=== PATIENT | female | born 1995 | race Caucasian/White ===

== ENCOUNTER 2022-04-30 13:49 | Outpatient (CLI) | payer OTHER, SELFPAY ==
--- NOTE | 2022-04-30 14:00 | CRLHL7_ITS ---
For Patients: As a result of the Century Cures Act, medical imaging exams and procedure reports are released immediately into your electronic medical record. You may view this report before your referring provider. If you have questions, please contact your health care provider. INDICATION: Evaluate anatomy. COMPARISON: 02/08/2022 TECHNIQUE: Real time rae scale imaging of the fetus was performed as well as color Doppler analysis of the umbilical vessels. FINDINGS: Sonographic imaging demonstrates a single living intrauterine gestation. Fetus demonstrates a regular cardiac rate of 152 beats per minute. Fetus has a vertex position. The placenta lies posteriorly without evidence of placenta previa. The edge of the placenta is located 4.0 cm from the internal cervical os. Amniotic fluid volume appears normal. Single deepest vertical pocket: 3.7 cm. The cervix is closed and measures 3.6 cm in length. The composite ultrasound gestational age is calculated at 20 weeks 4 days with an estimated sonographic due date of 09/13/2022. The estimated weight is 359 grams which lies at the 27th %. The following biometric measurements were obtained: Biparietal diameter: 4.8 cm/20 weeks 3 days 32nd% Head circumference: 18.3 cm/20 weeks 5 days 33rd% Abdominal circumference: 15.8 cm/21 weeks 0 days 47th% Femur length: 3.2 cm/19 weeks 6 days 14th% The HC/AC ratio measures: 1.16 range (1.07-1.25) On anatomic survey, there is a normal appearance of the cerebral ventricles, cavum septi pellucidi, cisterna magna and cerebellum. The nose, lips, and facial profile appear normal. The cervical, thoracic and lumbar spine are well visualized and appear normal. The left and right ventricular outflow tracts appear normal. 3 millimeter left ventricular echogenic focus is present. The diaphragm and stomach appear normal. The kidneys and bladder also appear normal. There is a normal three-vessel cord and cord insertion site. The four extremities appear normal. IMPRESSION: Concordance of clinical and sonographic dating. Echogenic left ventricular focus. Remainder of the anatomic survey is normal. Level 2 ultrasound suggested. Estimated weight 27th percentile. Abdominal circumference 47th percentile. Dictated by Raman Laurent MD @ 04/30/2022 3:28:20 PM (Electronically Signed)
== END 2022-04-30 13:50 | disposition home or self-care (01) ==
LOC: US 13:51
PROVIDERS: PCP Physician Assistant Medical; Visit Provider Physician Assistant
DX: Z34.92 Encounter for supervision of normal pregnancy, unspecified, second trimester (principal); Z3A.20 20 weeks gestation of pregnancy
CPT/HCPCS: 76805

== ENCOUNTER 2022-05-15 14:17 | Outpatient (CLI) | payer OTHER, SELFPAY | END 2022-05-15 14:18 | disposition home or self-care (01) | LOC: US 14:18 | PROVIDERS: PCP Physician Assistant Medical; Visit Provider Pediatrics Neonatal-Perinatal Medicine | DX: Z34.92 Encounter for supervision of normal pregnancy, unspecified, second trimester (principal); Z3A.23 23 weeks gestation of pregnancy | CPT/HCPCS: 76816 ==

== ENCOUNTER 2022-06-20 14:00 | Outpatient (CLI) | payer OTHER, SELFPAY ==
[2022-06-22 18:50] LABS: Rapid Plasma Reagin (RPR) Non Reactive (Non Reactive)
== END 2022-06-20 14:01 | disposition home or self-care (01) ==
LOC: NFLDREF 14:36
PROVIDERS: PCP Physician Assistant Medical; Visit Provider Advanced Practice Midwife
DX: Z34.93 Encounter for supervision of normal pregnancy, unspecified, third trimester (principal); Z3A.28 28 weeks gestation of pregnancy
CPT/HCPCS: 86592; 86787

== ENCOUNTER 2022-08-01 16:02 | Outpatient (CLI) | payer OTHER, SELFPAY ==
--- NOTE | 2022-08-01 16:00 | CRLHL7_ITS ---
For Patients: As a result of the Century Cures Act, medical imaging exams and procedure reports are released immediately into your electronic medical record. You may view this report before your referring provider. If you have questions, please contact your health care provider. OB ULTRASOUND 08/01/2022 CLINICAL HISTORY: Measuring small for dates. RAMBO by LMP: 09/11/2022. GA: 34w, 1d. FINDINGS: position: Vertex. Cervix: Not visualized. Placenta: Fundal posterior. Technique: Transabdominal. heart rate: 154 bpm. Amniotic Fluid: 3.9 cm SDP (greater than/equal to: 2- less than 8 cm). BPD: 8.3 cm. 33w 2d, 23 percent. HC: 31.5 cm. 35w 2d, 42 percent. AC: 29.9 cm. 33w 6d, 46 percent. FL: 6.1 cm. 31w 4d, less than 3 percent. FL/AC ratio: 20.4 percent. HC/AC ratio: 1.05. age by this US: 33w 4d. RAMBO by this US: 09/15/2022. EFW: 2168 g. Weight: 4 lbs, 12 oz. Percentile by RAMBO: 22 percent. IMPRESSION: Single live intrauterine gestation. Gestational age 33 weeks 4 days. RAMBO of 09/15/2022. Estimated weight 2168 g which lies at the 22nd percentile. BRITNEY IZQUIERDO M.D. Transcribed: 8:55 p.m. [email or web address] be/Dictated by: Britney Izquierdo MD @ 08/01/2022 7:22:00 PM (Electronically Signed)
== END 2022-08-01 16:03 | disposition home or self-care (01) ==
LOC: US 16:03
PROVIDERS: PCP Physician Assistant Medical; Visit Provider Advanced Practice Midwife
DX: O36.5930 Maternal care for other known or suspected poor fetal growth, third trimester, not applicable or unspecified (principal); Z3A.33 33 weeks gestation of pregnancy
CPT/HCPCS: 76816

== ENCOUNTER 2022-08-15 15:20 | Outpatient (CLI) | payer OTHER, SELFPAY ==
[2022-08-16 11:43] LABS: Strep B DNA Probe NEGATIVE (Negative)
== END 2022-08-15 15:21 | disposition home or self-care (01) ==
PROVIDERS: PCP Physician Assistant Medical; Visit Provider Advanced Practice Midwife
DX: Z34.03 Encounter for supervision of normal first pregnancy, third trimester (principal)
CPT/HCPCS: 87081; 87653

== ENCOUNTER 2022-08-27 13:57 | Outpatient (CLI) | payer OTHER, SELFPAY ==
--- NOTE | 2022-08-27 14:00 | CRLHL7_ITS ---
For Patients: As a result of the Century Cures Act, medical imaging exams and procedure reports are released immediately into your electronic medical record. You may view this report before your referring provider. If you have questions, please contact your health care provider. INDICATION: Size less than dates TECHNIQUE: Real time rae scale imaging of the fetus was performed. COMPARISON: 08/01/2022 FINDINGS: Sonographic imaging demonstrates a single living intrauterine gestation. Fetus demonstrates a regular cardiac rate of 149 beats per minute. Fetus has a vertex position. The placenta lies posteriorly. Amniotic fluid volume appears normal and there is a single deepest pocket of 4.9 cm. The estimated weight is 2990gm which lies at the 30th %. On the prior OB ultrasound dated 08/01/2022 the estimated weight was at the 22nd percentile. BPD 20th percentile. HC 30th percentile. AC 29th percentile. FL 22nd percentile. The fetus was active and demonstrated normal breathing movements. There was normal flexion and extension of the trunk and extremities. IMPRESSION: Normal biophysical profile score 8/8. Sonographic gestational age 36 weeks 5 days and sonographic due date of 09/19/2022. Sonographic age 8 days behind the clinical age. Estimated weight 30th percentile. Abdominal circumference 29th percentile. Dictated by Raman Laurent MD @ 08/27/2022 3:54:57 PM (Electronically Signed)
== END 2022-08-27 13:58 | disposition home or self-care (01) ==
LOC: US 13:57
PROVIDERS: PCP Physician Assistant Medical; Visit Provider Advanced Practice Midwife
DX: O36.5930 Maternal care for other known or suspected poor fetal growth, third trimester, not applicable or unspecified (principal); Z3A.37 37 weeks gestation of pregnancy
CPT/HCPCS: 76816; 76819

== ENCOUNTER 2022-08-30 15:17 | Inpatient (IN) | payer OTHER, SELFPAY ==
[2022-08-30] VITALS (9 sets, daily range): BP systolic 111–167; BP diastolic 71–80; PULSE 67–86; RESP 16–18; TEMP 36.5–36.9; O2SAT 100; BMI 26.6
[2022-08-30 16:14] LABS: Amnisure Rom* POSITIVE
--- NOTE | 2022-08-30 17:07 | P.LDBA_ITS ---
Subjective History of Present Illness Time Seen by Provider: 17:08 Date Seen: 08/30/22 Narrative: Patient is being admitted to Labor and Delivery for SROM, early labor. She is a 27 year old at 38.2 weeks gestation. Her full history and physical was dictated by Amelia Thompson on 08/23/22. Please see this for details. Tory states SROM, clear fluid noted at 10:00 am. Slow leak. She is starting to feel more frequent ctx, and feels these are increasing in intensity. Appears comfortable at this time. Partner at bedside for support. Blood type: O positive Partner: Florencio Milly Tdap, allergic. H&P done 08/23/2022 by CARY Webber 1. Cardiac Echogenic Foci on Anatomy US: 3 mm (Resolved) Level II with Dr. Tello, no identified on US; no further imaging or genetic testing required 2. Measuring smaller than dates US ordered: EFW 22% at 34 weeks Continues to measure behind at 37 weeks, recommended another growth 08/27/22: Growth u/s today for size < dates: 30%ile, FHR 149, SDP 4.0, Vertex. BPP 8/8. OB - H&P: Exam Physical Exam: Vital signs: Temp Pulse Resp Pulse Ox 98.3 F 86 16 100 08/30/22 15:25 08/30/22 15:25 08/30/22 15:25 08/30/22 15:25 Constitutional: Constitutional: no acute distress and cooperative Routine HEENT Exam: Head: Present normocephalic Routine Neck Exam: Neck: Present full ROM Routine Respiratory Exam: Respiratory: Present CTA bilaterally Routine Cardiovascular Exam: Cardiovascular: RRR Detailed Labor and Delivery Exam: Patient Gravid: yes Dilation (cm): 2 (2.5 per RN) Effacement (%): 60 Contraction frequency (min): 5 (2-5, mild, irregular) Contraction intensity: Mild Fetus (Single): Station: -3 Amniotic Membrane Status: SROM (small amount of clar fluid) Amniotic Membrane Fluid Description: Clear Heart Rate Baseline: 135 Monitor Accelerations: Present Monitor Decelerations: None Mcc Variability: Average (6-10) (Moderate) Routine Extremities Exam: Extremities: Present full ROM Routine Back/Spine/Pelvis Exam: Back/Spine: full ROM Routine Skin Exam: Present intact, dry and warm Routine Neurological Exam: Present alert and oriented X3 Routine Psychiatric Exam: Present normal affect and normal thought process OB - Problem Based A/P Additional Plan (1) SROM (spontaneous rupture of membranes): Status: Acute Plan at 38.2 weeks GBS neg Measuring small for dates, otherwise uncomplicated SROM, small amount, clear fluid X 8 hours Early labor Admit to L & D Intermittent monitoring per protocol at this time Does not need IV access at this time Reviewed options of using medication - cytotec or pitocin to encourage labor. Declines at this time, would prefer expectant management to see if labor occurs on it's own. Candidate for analgesia of choice. Planning unmedicated Desires waterbirth. Hep C neg and consent signed Continue to monitor for labor progress. Consider augmentation if not progressi ng Encourage movement and position changes to facilitate physiologic labor. Monitor for signs of infection Anticipate progress to NVD. Delivery/Labor/Induction Plan Plan: expectant management
[2022-08-30 18:06] LABS: SARS PCR* Negative SARS-CoV-2 (Negative)
[2022-08-30] MEDS: ONDANSETRON ODT 4 MG TAB PO (22:19)
[2022-08-31] VITALS (13 sets, daily range): BP systolic 105–135; BP diastolic 61–84; PULSE 61–86; RESP 14–16; TEMP 36.6–37.4; O2SAT 96
[2022-08-31] MEDS: LIDOCAINE 1% MDV 20 ML INJECTION (01:33)
--- NOTE | 2022-08-31 01:51 | P.OBPRC_ITS ---
Procedure Delivery date: 08/31/22 Procedure Done: Global Procedure Details: The patient is a 27 year-old G1 now P1 admitted on 08/30/22 at 38.2 Weeks for SROM, early labor.? Cervical exam on admission was 2.5 cm/60 % effaced/-3 station with membranes ruptured in vertex presentation.? Contractions were every 2-5 minutes.? SROM occurred at 1000 with clear fluid. ? Labor Analgesia:? Nitrous ? Pitocin:? No ? Labor onset:? 2203 ? Complete:? 0040 ? Pushing:? 0045 ? heart tones during second stage: Audible decels noted after ctx, good return to baseline noted. Tory noted increasing pressure, but was not spontaneously bearing down. SVE done, complete and +1 station. CNM encouraged her to push and used fingers to help her focus on wear to push. Good descent noted. Infant noted to be , and FHTs continued to have audible decels in the heart rate. Tight b and noted on the perineum. Massage done between pushing and with ctx, and further decent noted. Delivery occurred shortly after. ? At 0112 a viable male delivered in vertex OA presentation over intact perineum via spontaneous vaginal delivery.? Infant was placed on maternal abdomen.? Cord was clamped and cut after a 5+ minue delay.? weight pending.? 8 at 1 minute and 8 at 5 minutes.? Shoulder dystocia: no.? Nuchal cord: Yes, delivered through. ? Placenta delivered spontaneously and complete at 0125 with a 3 vessel cord. ? Mother and infant were stable after delivery. ? Lacerations:? Bilateral periurethrals, right repaired with 4-0 Vicryl. ? Blood loss: 100 mL. Blood loss measurement type: EBL r/t waterbirth ? Sponge and needles counts are correct. Intrapartal Events: None Delivery monitor: external FHT (Intermittant doppler) Route of delivery: Laceration description: Periurethral - 1st Degree (Bilateral, right repaired) Delivery repair: Vicryl Estimated blood loss (mL): 100 Anesthesia type: Nitrous (Nitrous for labor, Local for repair) Disposition: floor [place] Gender: Male presentation: vertex Placental Delivery Description: Spontaneous Cord Description: 3 Vessels and Nuchal Cord (Delivered through) OB Vag Delivery Procedures Additional Procedures ECV: No Cook Catheter Insertion: No NST: No D&C: No Laceration Repair: Yes Tubal Ligation : No Other: No
[2022-08-31] MEDS: ACETAMINOPHEN 500 MG TABLET 1000 MG PO ×3 (06:12→19:56)
[2022-08-31] MEDS: DOCUSATE SODIUM 100 MG CAPSULE PO (09:12)
[2022-08-31] MEDS: IBUPROFEN 600 MG TABLET PO ×2 (09:39→16:01)
[2022-09-01 01:34] VITALS: BP 107/69; PULSE 68; RESP 14; TEMP 37.1
[2022-09-01] MEDS: ACETAMINOPHEN 500 MG TABLET 1000 MG PO (03:20)
[2022-09-01] MEDS: IBUPROFEN 600 MG TABLET PO (07:54)
[2022-09-01] MEDS: DOCUSATE SODIUM 100 MG CAPSULE PO (07:54)
[2022-09-01 08:00] VITALS: BP 113/76; PULSE 68; RESP 14; TEMP 37.1
--- NOTE | 2022-09-01 08:26 | PM.OBDSVD1 ---
DS: Providers Provider Date Seen: 09/01/22 Date of admission: 08/30/22 15:17 Primary care physician: Ronny Steele PA-C Admitting Clinician: Zulma Quiroz CNM Attending Physician on discharge: Barby Thompson CNM Date of Discharge: 09/01/22 DS: Diagnosis Discharge Diagnosis (1) care and examination immediately after delivery: Status: Acute (2) Normal spontaneous vaginal delivery: Status: Acute (3) Lactating mother: Status: Acute Exam Const: Vital Signs, click to edit/add: Vital Signs - 24 hr 08/31/22 12:25 08/31/22 16:00 08/31/22 20:00 Temperature 98.9 F 98.8 F 98 F Pulse Rate [Pulse Oximeter] 68 68 68 Respiratory Rate 14 14 14 Blood Pressure [Le ft Arm] 110/74 134/84 119/77 Oxygen Delivery Me thod Room Air Room Air Room Air 09/01/22 01:34 BIT BENDER 09/01/22 08:00 Temperature 98.7 F 98.7 F Pulse Rate [Pulse Oximeter] 68 68 Respiratory Rate 14 14 Blood Pressure [Le ft Arm] 107/69 113/76 Oxygen Delivery Me thod Room Air Room Air Documenting provider has reviewed patient's vital signs: yes Common normals: no apparent distress, oriented x3, healthy appearing and alert HENMT: Common normals: normocephalic Head and scalp: normocephalic Eye: Common normals: PERRL Pupil: PERRL Neck & C-Spine: Common normals: full ROM and supple Chest: Common normals: inspection of chest normal Resp: Common normals: normal respiratory effort and clear to auscultation bilaterally Auscultation: clear to auscultation bilaterally Cardio: Common normals: regular rate and regular rhythm Rate: regular rate Rhythm: regular rhythm GI: Common normals: soft to palpation Palpation: soft : OB/external & speculum: Yes perineal/vaginal laceration Laceration: periurethral Uterus: U/U Lochia: scant Back & Pelvis: Common normals: thoracic and lumbar spine normal to inspection Extremity: Common normals: normal to inspection and full ROM Neuro: Common normals: oriented x3 Sensorium/orientation: alert Speech: speech normal Psych: Common normals: mental status grossly normal, thought process normal, speech normal and activity/motor behavior normal Speech: normal speech Thought process: normal thought process Skin: Common normals: no rashes or lesions noted General skin exam: no rashes or lesions noted OB - DS: Summary Hospital Course Hospital Course: The patient is a 27 year old G 1 P 1 at 38 3/7 weeks gestation that was admitted to the [facility] on 08/30/22 for SROM. She had an uncomplicated vaginal delivery. She delivered a viable male infant, Manish. She is breast feeding and reports it is going well. the patient has done well. The pain is well controlled with current medications.? She has no new complaints.? Urinary output is adequate and she is voiding without difficulty.? Has a good appetite, is tolerating a general diet, is passing flatus, and has not yet had a bowel movement.? Has scant amount of rubra lochia.? She is ambulating well. Peripartum Data delivery method: Vaginal Laceration description: Periurethral - 1st Degree complications: none Pooler Gender: Male Discharge Plan: Home Status at Discharge Functional status at discharge: independent ambulation Overall status at discharge: patient is progressing back to baseline Time Spent with Patient Time attestation: Total time spent providing and/or coordinating discharge services: Discharge Plan Discharge Disposition: Home, Self-Care Date of Admission: 08/30/22 15:17 Attending Provider on Discharge: Barby Thompson Primary Care Provider: Ronny Steele Condition: Stable Anticipated Discharge Date/Time: 09/01/22 10:00 Discharge Medications: New acetaminophen 500 mg Tablet 1,000 mg PO Q6H PRNQty: 0 0RF docusate sodium 100 mg Capsule 100 mg PO DAILY Qty: 90 0RF ibuprofen 600 mg Tablet 600 mg PO Q6H PRNQty: 60 0RF Continued cholecalciferol (vitamin D3) 50 mcg (2,000 unit) tablet 2,000 unit PO DAILY prenat.vits,jane,[id number] Tablet 1 tab PO QDAY vitamin B complex Capsule 1 cap PO QDAY (DME) breast pump Device See Rx Instructions .Route Qty: 1 0RF Rx Instructions: As directed Discharge Orders: Discharge Order (Routine); Ordered 09/01/22 Ordered By: Barby Thompson Patient Education: OB Vaginal/Breast Feeding Additional Instructions: Discharge instructions were reviewed with the patient including signs and symptoms of infection and home going medications Nothing vaginally for 6 weeks: no tampons or intercourse Off Work or School for 6 weeks 2-week visit: discuss infant feeding concerns, review control options and screen for anxiety/depression. 6-week visit for an annual exam. consultation services are available to all mothers and babies for the first year after delivery.? To make an appointment, please call [phone]. Activity Level: No Restrictions and Activity as Tolerated Discharge Diet: Regular Follow Up Appointments: [facility] [Provider Group] (2 weeks and 6 weeks ) Forms: [employer] Info Instructions
== END 2022-09-01 11:22 | disposition home or self-care (01) | DRG 807 ==
LOC: OB OUT 15:17 → OB 15:19
PROVIDERS: Admitting Provider Advanced Practice Midwife; PCP Physician Assistant Medical; Visit Provider Advanced Practice Midwife
DX: O36.5930 Maternal care for other known or suspected poor fetal growth, third trimester, not applicable or unspecified (principal); Z37.0 Single live birth; O70.0 First degree perineal laceration during delivery; Z3A.38 38 weeks gestation of pregnancy
CPT/HCPCS: 76815; 84112; 87635; 99213; A9270

== ENCOUNTER 2022-09-13 11:01 | Outpatient (CLI) | payer OTHER, SELFPAY ==
--- NOTE | 2022-09-13 17:55 | P.LACCB_ITS ---
Consult Note - Mom Date of Visit Date of visit: 09/13/22 business process consultant: Yuki Mckee Visit Code: Visit Patient's Information Phone number: [phone] : 1 Para: 1 Allergies Pertussis Vaccines Allergy (Severe, Verified 09/16/22 15:30) got pertussis from injection Mother's Medical History: Medical History (Updated 09/04/22 @ 00:01 by ) Delivery Information Delivery type: Vaginal Weeks Gestation: 38.3 Gestational Age: AGA Weight: 3.255 kg Discharge Weight: 3.15 kg Baby's Information Baby's Age at Visit: 13 days Baby's Provider or Clinic: Dr. Thompson Jaundice: Yes (facial) Reason for Consult Reason for Consult: difficulty latching on the left Past Experience Past Experience: No Current Frequency of Day Feedings: about every 2 hours, cluster fed yesterday Frequency of Night Feedings: every 2 - 3 hours Both Breasts: Yes Suck: strong Latch: wide Length of Time: 10 - 30 minutes total Pumping Pumping: Yes (uses the Haakaa as well as her hands free pump) Quantity Pumped: 1.5 - 3 oz total each time Supplementing EMB Supplement: No Formula Supplement: No Baby Elimination Number of Wet Diapers a Day: 12 - 15 Number of BM a Day: 6 - 7; yellow and seedy Breast/Nipple Condition Breast Information: WNL Engorgement: No Maternal Nipple Condition - Left: Common Nipple Maternal Nipple Condition - Right: Common Nipple Sore Nipples: No Onsite Pre-Feed weight: 3.412 kg Post-Feed weight: 3.488 kg Milk Transferred (mL): 76 Pre-Nursing Left Nipple: Within Normal Limits Pre-Nursing Right Nipple: Within Normal Limits Post-Nursing Left Nipple: Within Normal Limits Post-Nursing Right Nipple: Within Normal Limits Assessments/Interventions Assessments/Interventions: Met with mom and this now 13 day old ex- term AGA baby for consult.? Mom reports having trouble on the left side, but states she started nursing him in the football position on that side and it's been more comfortable.? Baby is nursing every 2 - 3 hours on both sides and feedings last from 10 - 30 minutes total; he cluster fed yesterday.? Mom uses the Haakaa on the side baby isn't nursing from and also uses her hands free pump after most daytime feedings.? States she gets from 1.5 - 3 oz total each time.? POC have not offered any EBM yet. Breasts WNL- symmetrical with rounded lower quadrants.? Nipples are everted and don't flatten or retract on compression; no damage noted.? Mom is using silverettes stating her nipples are a little sensitive when clothing rubs against them. Baby has gained 35 grams/day since his last visit on 09/09/22.? Mom denies any caput/cephalohematoma at delivery.? States baby prefers turning his head to the right and has seen a chiropractor twice; she reports equal ROM when moving his extremities.? His palate is WNL as is his upper frenulum.? His lower frenulum is visible, possibly a little posterior.? He has a strong suck on a finger but doesn't consistently stick his tongue over the gum line; the tongue has good lateral movement. Mom latched baby in the football hold on the left, he had a wide latch and mom was comfortable.? She didn't support her breast once he started nursing and her flow seemed a little fast; milk was seen in the corner of baby's mouth and by his upper lip.? He lost the latch after several minutes; when mom was instructed to support her breast while he nursed this didn't seem to improve the amount of time he maintained a deep latch before coming off.? He nursed for 10 - 15 minutes on the left before mom switched him to the cross cradle hold on the right.? He nursed without difficulty on this side for about 5 minutes, transferring 76 ml.? Plan: 1. Continue nursing on both sides ALD (don't let baby go past 4 hours overnight for now).? He may be spilling milk on the left d/t a poor seal on the breast because of mom's flow, lack of support of the breast, or because his tongue isn't extending past the gum line consistently (this may also by why her nipples are extra sensitive).? Reviewed a few tongue exercises and suggested she or dad try these before daytime nursing sessions.? Also suggested she experiment with supporting her breast during the feeding.? Could also had express a little milk before a nursing session as well as this may help with the flow. 2. No need to supplement with any EBM.? Encouraged her to wait until baby is a month old to introduce a bottle. 3. No need to pump at her current schedule, but she can continue if desired.? Goldie escalantewed her Motif Melissa pump, suggested the 20 mm flanges and a Flange Fit guide was given.? 4. Encouraged her to continue taking baby to the chiropractor and use the silverettes. 4. Will f/u in for a one month weight check.? If still having trouble with the latch, could suggest a pediatric dental referral. Meds Home Medications and Allergies Home Medications Medication Instructions Recorded Confirmed Type cholecalciferol (vitamin D3) 50 2,000 unit PO DAILY 04/30/22 09/16/22 History mcg (2,000 unit) tablet prenat.vits,jane,[id number] 1 tab PO QDAY 04/30/22 09/16/22 History vitamin B complex 1 cap PO QDAY 04/30/22 09/16/22 History sunflower lecithin PO BID 09/16/22 History Allergies Allergy/AdvReac Type Severity Reaction Status Date / Time Pertussis Vaccines Allergy Severe got Verified 09/16/22 15:30 pertussis from injection
== END 2022-09-13 11:02 | disposition home or self-care (01) ==
LOC: OB LAC 11:02
PROVIDERS: PCP Physician Assistant Medical; Visit Provider Advanced Practice Midwife
DX: Z39.1 Encounter for care and examination of lactating mother (principal)
CPT/HCPCS: 99211

== ENCOUNTER 2022-12-09 08:10 | Outpatient (CLI) | payer OTHER, SELFPAY | END 2022-12-09 08:11 | disposition home or self-care (01) | LOC: NFLDREF 08:11 | PROVIDERS: PCP Physician Assistant Medical; Visit Provider Advanced Practice Midwife | DX: R39.9 Unspecified symptoms and signs involving the genitourinary system (principal) | CPT/HCPCS: 87086 ==

== ENCOUNTER 2022-12-12 10:41 | Outpatient (CLI) | payer OTHER, SELFPAY ==
[2022-12-14 03:09] LABS: HSV 2 Glycoprotein G IgG 0.11 IV (<=0.89)
[2022-12-14 06:17] LABS: HSV 1 and/or 2 IgM by ELISA 0.61 IV (<=0.89); HSV Type 1/2 Combined Ab, IgG 4.88 IV
== END 2022-12-12 10:42 | disposition home or self-care (01) ==
LOC: NFLDREF 10:43
PROVIDERS: PCP Physician Assistant Medical; Visit Provider Advanced Practice Midwife
DX: N89.8 Other specified noninflammatory disorders of vagina (principal); R39.9 Unspecified symptoms and signs involving the genitourinary system
CPT/HCPCS: 86694; 86695; 86696

== ENCOUNTER 2023-02-24 07:30 | Outpatient (RCR) | payer BC, SELFPAY | END 2023-06-02 12:41 | disposition home or self-care (01) | PROVIDERS: PCP Physician Assistant Medical; Visit Provider Advanced Practice Midwife | DX: N39.46 Mixed incontinence (principal); Z51.89 Encounter for other specified aftercare | CPT/HCPCS: 97110; 97112; 97140; 97161; 97535 ==

== ENCOUNTER 2023-05-26 11:22 | Outpatient (CLI) | payer BC, SELFPAY ==
[2023-05-26 15:04] LABS: SARS PCR* Negative SARS-CoV-2 (Negative)
== END 2023-05-26 11:23 | disposition home or self-care (01) ==
PROVIDERS: PCP Nurse Practitioner Family; Visit Provider Nurse Practitioner Family
DX: J11.1 Influenza due to unidentified influenza virus with other respiratory manifestations (principal)
CPT/HCPCS: 85025; 87635; 87798

== ENCOUNTER 2024-10-29 12:54 | Outpatient (CLI) | payer OTHER, SELFPAY ==
--- NOTE | 2024-10-29 00:30 | CRLHL7_ITS ---
For Patients: As a result of the Cures Act, medical imaging exams and procedure reports are released immediately into your electronic medical record. You may view this report before your referring provider. If you have questions, please contact your health care provider. INDICATION: First trimester scan, establish dates. COMPARISON: None. TECHNIQUE: Real-time rae-scale imaging of the pelvis was performed. FINDINGS: Sonographic imaging demonstrates a single living intrauterine gestation. The embryo demonstrates a regular cardiac rate measuring 171 beats per minute. The embryo`s crown-rump length measurement of 1.6 cm corresponds to a gestational age of 8 weeks 0 days with a sonographic due date of 06/10/2025. There is a normal-appearing yolk sac. There are no gross abnormalities noted within the embryo at this early state of development. The gestational sac has a normal appearance. There is no evidence of a perigestational hemorrhage. The amount of fluid within the sac appears appropriate for gestational age. The cervix is closed. The myometrium appears normal. The ovaries are of normal size. Corpus luteal cyst left ovary. There are no suspicious fluid collections noted in the cul-de-sac. IMPRESSION: Normal first trimester OB ultrasound exam. Gestational age calculated at 8 weeks 0 days with a sonographic due date of 06/10/2025. Dictated by Raman Laurent MD @ 11/01/2024 9:03:59 AM (Electronically Signed)
== END 2024-10-29 12:55 | disposition home or self-care (01) ==
LOC: US 12:55
PROVIDERS: PCP Nurse Practitioner Family; Visit Provider Advanced Practice Midwife
DX: Z34.91 Encounter for supervision of normal pregnancy, unspecified, first trimester (principal); Z3A.08 8 weeks gestation of pregnancy
CPT/HCPCS: 76817; 83021; 86592; 86703; 86704; 86706; 86762; 86787; 86803; 86850; 86900; 86901; 87086; 87340

== ENCOUNTER 2025-01-18 13:44 | Outpatient (CLI) | payer OTHER, SELFPAY ==
--- NOTE | 2025-01-18 14:00 | CRLHL7_ITS ---
For Patients: As a result of the Century Cures Act, medical imaging exams and procedure reports are released immediately into your electronic medical record. You may view this report before your referring provider. If you have questions, please contact your health care provider. INDICATION: 2nd trimester anatomical survey. TECHNIQUE: Ultrasound OB pelvis transabdominal. Real-time rae-scale imaging of the fetus was performed as well as color Doppler of the umbilical artery. COMPARISON: Ob ultrasound 10/29/2024 FINDINGS: Intrauterine gestation: Single. heart rate: Regular, 155 bpm. presentation: Cephalic. Placenta: Anterior, without previa. The placental tip measures 3.3 cm from the internal os. Possible placental Hagan measuring 5.2 x 1.3 x 2.6 cm Cervix: 3.4 cm and closed. Amniotic fluid: 3.6 cm deepest pocket. Biometry: Biparietal diameter: 4.5 cm, 19 weeks 4 days. Head circumference: 16.7 cm, 19 weeks 3 days. Abdominal circumference: 14.2 cm, 19 weeks 4 days. Femoral length: 3 cm, 19 weeks 2 days. EFW: 289.7 gm, 16 %. Anatomical Survey: 4 chamber heart: Visualized. Stomach: Visualized. Kidneys: Visualized. Bladder: Visualized. Spine: Visualized. Sacrum: Visualized. 4 extremities: Visualized. Cord insertion: Visualized. 3V cord: Visualized. Face: Visualized. Nose: Visualized. Lips: Visualized. Cerebellum: Visualized. Cisterna Magna: Visualized. Lateral ventricles: Visualized. IMPRESSION: 1. Single viable intrauterine measuring 19 weeks 4 days by ultrasound with RAMBO of 06/10/2025. Estimated weight is 290 grams, in the 16 %. 2. No intrinsic abnormalities noted on anatomic survey. 3. Placental tip measures 3.3 cm from the internal os, with possible placental hagan measuring up to 5.2 cm Dictated by Nydia Brandon MD @ 01/19/2025 3:10:06 PM (Electronically Signed)
== END 2025-01-18 13:45 | disposition home or self-care (01) ==
LOC: US 13:45
PROVIDERS: PCP Nurse Practitioner Family; Visit Provider Advanced Practice Midwife
DX: Z34.92 Encounter for supervision of normal pregnancy, unspecified, second trimester (principal); Z3A.19 19 weeks gestation of pregnancy
CPT/HCPCS: 76805

== ENCOUNTER 2025-03-16 15:05 | Outpatient (CLI) | payer OTHER, SELFPAY | END 2025-03-16 15:06 | disposition home or self-care (01) | LOC: NFLDREF 03-25 14:08 | PROVIDERS: PCP Nurse Practitioner Family; Referring Provider Nurse Practitioner Family; Visit Provider Advanced Practice Midwife | DX: Z34.83 Encounter for supervision of other normal pregnancy, third trimester (principal) | CPT/HCPCS: 86592; 86593; 86780 ==

== ENCOUNTER 2025-03-28 16:22 | Outpatient (CLI) | payer OTHER, SELFPAY ==
[2025-03-28 16:35] VITALS: PULSE 70; O2SAT 100
[2025-03-28 16:40] VITALS: PULSE 78; O2SAT 98
[2025-03-28 16:45] VITALS: BP 112/59; PULSE 69
[2025-03-28 16:47] VITALS: RESP 18; TEMP 36.8
[2025-03-28 17:14] LABS: Appearance Urine Clear (Clear); Bilirubin Urine Negative (Negative); Blood Urine Negative (Negative); Color Urine Yellow (Yellow); Glucose Urine Negative (Negative); Ketones Urine Negative (Negative); Leukocyte Esterase Urine Negative (Negative); Nitrite Urine Negative (Negative); Protein Urine Negative (Negative); Urobilinogen Urine 0.2 (0.2-1.0)
[2025-03-28] MEDS: CALCIUM CARBONATE 500 MG CHEW 1000 MG PO (17:21)
--- NOTE | 2025-03-28 17:41 | PM.OBLDTN ---
OB - Triage/Final Diagnosis Visit Information Date Seen: 03/28/25 Date of evaluation: 03/28/25 Narrative: Tory is a 30 year old 2 para 1 at 29.6 weeks gestation by LMP, who presents with nausea which started this morning when she got up. She reports one episode of sharp pain on both sides of her abdomen, points to her groin as area of pain, this resolved immediately. Additionally she reports pain in her abdomen all over, denies feeling contractions or cramping describes as deep pain in her whole stomach. She is tender in her epigastric area only with palpation. She denies eating anything that could contribute to possible food poisoning, has not eaten new foods. Denies any known exposure to illness, states they were around a lot of people over the weekend though. She is able to eat and drink fluids, declines medication for nausea but wants to try Tums. Fetus is active and she denies any vaginal bleeding or discharge. Offered cervical exam for peace of mind which she declines. She had an appendectomy in 2018. Given instructions for return including concern for decreased movement, new onset vaginal bleeding, severe abdominal pain, nausea and vomiting where she can't keep food or water down. She felt comfortable with going home at this time and has next appointment in two days. Reason for evaluation: other Evaluation Laboratory results: Laboratory Tests 03/28/25 Range/Units 16:58 Urine Color Yellow (Yellow) Urine Appearance Clear (Clear) Urine pH 7.0 (5.0-8.5) Ur Specific [place] 1.010 (1.000-1.030) Urine Protein Negative (Negative) Urine Glucose (UA) Negative (Negative) Urine Ketones Negative (Negative) Urine Blood Negative (Negative) Urine Nitrite Negative (Negative) Urine Bilirubin Negative (Negative) Urine Urobilinogen 0.2 (0.2-1.0) Ur Leukocyte Esterase Negative (Negative) Vital signs: Vital Signs - 24 hr 03/28/25 16:35 03/28/25 16:40 03/28/25 16:45 Temperature Pulse Rate 69 Respiratory Rate Blood Pressure 112/59 L Pulse Oximetry 100 98 03/28/25 16:47 Temperature 98.2 F Pulse Rate Respiratory Rate 18 Blood Pressure Pulse Oximetry Fetus (Single) Heart Rate Baseline: 130 [employer] Variability: Moderate (6-25) Monitor Accelerations: Present Monitor Decelerations: Variable Final Diagnosis (1) related nausea, antepartum: Status: Acute
--- NOTE | 2025-03-28 17:59 | PC.OBNST ---
NST Note NST Note Start: 03/28/25 16:27 Freq: ONCE Status: Active Protocol: Document 03/28/25 17:58 NASRIN (Rec: 03/28/25 17:59 NASRIN [id number]) NST Note 2 Para (# of births) 1 EDC 06/07/25 Gestational Age In 29 Weeks & 6 Days Weeks & Days Patient Presented Pain with Complaint(s) of Other Complaints Generalized abdominal pain and nausea Reactive Yes Appropriate for Yes Gestational Age SONIA Amor Date 03/28/25 Reactive Yes Appropriate for Yes Gestational Age SONIA Rawls Date 03/28/25 OB NST charge Yes Complete NST Note Yes via Write Note The provider's electronic signature indicates the NST is reactive/appropriate for gestational age. *Note to provider: If an addendum is required, open the patient's chart and click on the note under the Nurse/Allied Health tab.
== END 2025-03-28 17:55 | disposition home or self-care (01) ==
LOC: OB OUT 16:22 → OB 16:23
PROVIDERS: PCP Nurse Practitioner Family; Visit Provider Advanced Practice Midwife
DX: O26.899 Other specified pregnancy related conditions, unspecified trimester (principal); R11.0 Nausea; R10.9 Unspecified abdominal pain; Z3A.29 29 weeks gestation of pregnancy
CPT/HCPCS: 59025; 81003; G0463; A9270

== ENCOUNTER 2025-03-29 13:04 | Outpatient (CLI) | payer OTHER, SELFPAY ==
[2025-03-29 13:09] VITALS: RESP 16; TEMP 36.9
[2025-03-29 13:12] VITALS: BP 120/77; PULSE 70
--- NOTE | 2025-03-29 14:03 | PC.OBNST ---
NST Note NST Note Start: 03/29/25 13:12 Freq: ONCE Status: Active Protocol: Document 03/29/25 14:02 BAW (Rec: 03/29/25 14:03 BAW No Response) NST Note 2 Para (# of births) 1 EDC 06/07/25 Gestational Age In 30 Weeks & 0 Days Weeks & Days Patient Presented Nausea and vomiting with Complaint(s) of Reactive Yes Appropriate for Yes Gestational Age SONIA Butler RNC Date 03/29/25 Reactive Yes Appropriate for Yes Gestational Age SONIA Holliday RN Date 03/29/25 OB NST charge Yes Complete NST Note Yes via Write Note The provider's electronic signature indicates the NST is reactive/appropriate for gestational age. *Note to provider: If an addendum is required, open the patient's chart and click on the note under the Nurse/Allied Health tab.
== END 2025-03-29 13:48 | disposition home or self-care (01) ==
LOC: OB OUT 13:04 → OB 13:04
PROVIDERS: PCP Nurse Practitioner Family; Visit Provider Advanced Practice Midwife
DX: O26.893 Other specified pregnancy related conditions, third trimester (principal); R11.2 Nausea with vomiting, unspecified; Z3A.30 30 weeks gestation of pregnancy
CPT/HCPCS: 59025; G0463

== ENCOUNTER 2025-05-10 09:00 | Outpatient (CLI) | payer OTHER, SELFPAY | END 2025-05-10 09:01 | disposition home or self-care (01) | LOC: NFLDREF 05-12 13:48 | PROVIDERS: PCP Nurse Practitioner Family; Referring Provider Nurse Practitioner Family; Visit Provider Advanced Practice Midwife | DX: Z34.83 Encounter for supervision of other normal pregnancy, third trimester (principal) | CPT/HCPCS: 87081; 87653 ==

== ENCOUNTER 2025-05-18 22:39 | Inpatient (IN) | payer OTHER, SELFPAY ==
[2025-05-18 16:39] VITALS: BP 135/67; PULSE 86
[2025-05-18 20:41] VITALS: BP 105/55; PULSE 81; RESP 16; TEMP 36.7
[2025-05-18 23:03] VITALS: BMI 26.6
--- NOTE | 2025-05-18 23:03 | W.PM.LDBA ---
Subjective History of Present Illness Narrative: Tory is a 30 yo at 37 1/7 weeks being admitted to Labor and Delivery for spontaneous onset of labor. She was seen earlier today in clinic and had been having irregular contractions on and off since yesterday afternoon. She called this afternoon reporting contractions had intensified but she was uncertain of when to come in. She has a history of a faster labor with her first. She is worried about waiting to long to come in. Her full history and physical was dictated by Akbar KELLY CNM on 05/18/2025. Please see this for details. Specific Issues/Plans : Florencio H&P completed by CARY Webber on 05/18/2025 # Hx of PTSD, well controlled # Hx of genital herpes Prophylaxis recommended starting at 36 weeks: Ordered # Placenta Hagan, 5.2 cm # Hemorrhoid, having drained by primary care 04/28 Not improved and feels painful Taking Magnesium for bowel management, utilizing comfort measures # RPR positive, negative TP-PA at 28 weeks TDAP: Patient has allergy to pertussis vaccine. OB - Problem Based A/P Additional Plan (1) Pain during labor: Status: Acute (2) 37 weeks gestation of : Status: Acute (3) History of herpes genitalis: Status: Acute (4) PTSD (post-traumatic stress disorder): Problem details: evaluated for the [facility] Status: Acute Plan ASSESSMENT:? 30 yo at 37 1/7 weeks gestation? complicated by:?Hx of PTSD, stable; hx of genital herpes on prophylaxis valtrex; placenta hagan 5.2 cm, hemorrhoid drained by primary care 04/28 Labor type: Spontaneous, Early labor? Category 1 FHR pattern.?? Labor complicated by: none? GBS negative? ? PLAN:? 1. Routine intrapartum cares as ordered. Continue with expectant management? 2. Monitoring per policy, intermittent? 3. Planning unmedicated . Desires water . Consent signed. Hep C negative. Candidate for analgesia of choice, if desired.?? 4. Patient encouraged to reposition and ambulate to promote physiologic labor and .? 5. Anticipate ? Delivery/Labor/Induction Plan Plan: expectant management OB Result Labs Blood Type: O (+) positive OB Exam Physical Exam Vital signs: Temp Pulse Resp BP 98.1 F 81 16 105/55 L 07/23/25 20:41 05/18/25 20:41 05/18/25 20:41 05/18/25 20:41 Narrative: Vitals Reviewed Constitutional:? Alert and oriented x3 HEENT:? Normocephalic, atraumatic Neck:? Supple Lungs:? Clear to auscultation bilaterally Heart:? Regular rate and rhythm, no murmur, rub or gallop Abdomen:? Soft, nontender, and gravid. Vertex by Rafal's, confirmed with cervical exam. Extremities:? No edema or erythema Cervix: 5 cm/80%/-1 station/vertex NST: 135 bpm/moderate variability/15x15 accelerations/no decelerations/contractions every 2-3 minutes Detailed Labor and Delivery Exam Patient Gravid: yes
[2025-05-18 23:49] VITALS: BP 99/59; PULSE 71
[2025-05-19] VITALS (28 sets, daily range): BP systolic 93–128; BP diastolic 51–80; PULSE 60–96; RESP 16–22; TEMP 36.4–36.8; O2SAT 97
--- NOTE | 2025-05-19 07:14 | P.OBPN_ITS ---
Subjective Date Seen: 05/19/25 Narrative: Tory is a 30 yo at 37 2/7 weeks that presented in labor and made p rogression overnight to 6-7 cm. She reports regular contractions this morning and increased pressure. She is coping well and supported by her , Florencio. She has rested some over night but felt contractions intensified around 5 am. Objective Exam: Objective: Constitutional: Alert and oriented x3, mild distress, coping well Vital signs stable, see nurse documentation Abdomen: gravid, contractions palpate moderate with contractions and soft between Cervix: 6-7 cm/80%/-1 station/vertex FHR with dopplers: 135, reassuring via intermittent monitoring Vital Signs: Last Vital Signs Temp 97.7 F 05/19/25 07:03 Pulse 84 05/19/25 07:02 Resp 16 05/19/25 07:03 BP 123/80 05/19/25 07:02 Plan Plan: ASSESSMENT:? 30 yo at 37 2/7 weeks gestation? complicated by:?Hx of PTSD, stable; hx of genital herpes on prophylaxis Valtrex; placenta pereira 5.2 cm, hemorrhoid drained by primary care 04/28 Labor type: Spontaneous, Early labor? Category 1 FHR pattern.?? Labor complicated by: none? GBS negative? ? PLAN:? 1. Routine intrapartum cares as ordered. Continue with expectant management. Discussed AROM due to advanced dilation at term. 2. Monitoring per policy, intermittent? 3. Planning unmedicated . Desires water . Consent signed. Hep C negative. Candidate for analgesia of choice, if desired.?? 4. Patient encouraged to reposition and ambulate to promote physiologic labor and .? 5. Anticipate
--- NOTE | 2025-05-19 08:53 | PM.OBPNL ---
Subjective Date Seen: 05/19/25 Narrative: ?Tory is coping well with labor pain/contractions. ?Florencio is with her for support. ?She has been walking the halls and changing positions in the room often. Currently feeling some pressure with contractions but not intensifying, encouraged to rest in bed if able. ? Objective Exam: VSS, afebrile General Appearance:? Calm, cooperative. ?No acute distress. ? Psychiatric Exam: Alert and oriented, appropriate affect Abdomen: Gravid Ctx: ?Q 3-4 min apart. ? ? ?Strong FHTs: FHR 120 with increases audible to 140. No decreases heard. RN auscultated before, during, and after contraction. SVE: deferred at this time Membranes: ?AROM at 0655 clear fluid by previous provider Vital Signs: Last Vital Signs Temp 97.8 F 05/19/25 08:08 Pulse 79 05/19/25 08:08 Resp 16 05/19/25 08:08 BP 102/57 L 05/19/25 08:08 Contractions Monitor mode: Palpation Plan Plan: Assessment:?? at 37.2 weeks gestation?? GBS negative Patient is coping well with challenges of labor.?? Labor type: Augmented, Active labor? Intermittent monitoring of FHR complicated by: Hx of PTSD, stable; hx of genital herpes on prophylaxis Valtrex; placenta pereira 5.2 cm, hemorrhoid drained by primary care 04/28 Labor complicated by: none Plan:?? Continue with routine intrapartum cares as ordered.?? Patient encouraged to move and change positions to promote physiologic labor and .?? Nonpharmacologic comfort measures per patient preference. Candidate for analgesia of choice if desired. Patient planning waterbirth Anticipate progress to NVD. ?
--- NOTE | 2025-05-19 09:50 | PM.OBPNL ---
Subjective Date Seen: 05/19/25 Narrative: ?Tory is coping well with labor pain/contractions. ?Florencio is with her for support. ?She is using rest, relaxation and repositioning for comfort and pain management.?She is not feeling much stronger contractions or pressure at this time. Objective Exam: VSS, afebrile General Appearance:? Calm, cooperative. ?No acute distress. ? Psychiatric Exam: Alert and oriented, appropriate affect Abdomen: Gravid Ctx: ?Q 3-5 min apart. ? ?Moderate ? FHTs: intermittent monitoring?FHR 120 with increases audibly heard up to 135. No decreases heard. Doptones done by RN before, during, and after contraction. SVE: / Membranes: ?AROM clear Vital Signs: Last Vital Signs Temp 97.7 F 05/19/25 09:00 Pulse 71 05/19/25 09:00 Resp 18 05/19/25 09:00 BP 93/51 L 05/19/25 09:00 Contractions Monitor mode: Palpation Plan Plan: Assessment:?? at 37.2 weeks gestation?? GBS negative Patient is coping well with challenges of labor.?? Labor type: Augmented, prodromal labor? Intermittent monitoring complicated by: Hx of PTSD, stable; hx of genital herpes on prophylaxis Valtrex; placenta pereira 5.2 cm, hemorrhoid drained by primary care 04/28 Labor complicated by: slow cervical change Plan:?? Encouraged walking, side lying release, hands and knees positioning Continue with routine intrapartum cares as ordered.?? Patient encouraged to move and change positions to promote physiologic labor and .?? Nonpharmacologic comfort measures per patient preference. Candidate for analgesia of choice if desired. Patient planning waterbirth Anticipate progress to NVD. ?
--- NOTE | 2025-05-19 11:23 | PM.OBPNL ---
Subjective Date Seen: 05/19/25 Narrative: ?Tory is coping well with labor pain/contractions. ?Florencio is with her for support. ?She is feeling pressure with some contractions but not all of them. ?Discussed starting IV Pitocin for augmentation at this time, reviewed R/B/A with patient and . She is agreeable to this plan, states she would like to be done. Objective Exam: VSS, afebrile General Appearance:? Calm, cooperative. ?No acute distress. ? Psychiatric Exam: Alert and oriented, appropriate affect Abdomen: Gravid Ctx: ?Q 3-5 min apart. ? ?Moderate ? FHTs: ?FHR 130 with increases heard up to 150. No decreases auscultated. Doptones done before, during, and after contraction SVE: deferred at this time Membranes: ?AROM clear fluid at 0655 Vital Signs: Last Vital Signs Temp 98.2 F 05/19/25 10:02 Pulse 88 05/19/25 11:10 Resp 18 05/19/25 10:02 BP 117/65 05/19/25 11:10 Contractions Monitor mode: Palpation Plan Plan: Assessment:?? at 37.2 weeks gestation?? GBS neg Patient is coping well with challenges of labor.?? Labor type: Augmented, Active labor? Intermittent monitoring complicated by: Hx of PTSD, stable; hx of genital herpes on prophylaxis Valtrex; placenta pereira 5.2 cm, hemorrhoid drained by primary care 04/28 Labor complicated by: slow cervical change Plan:?? Start IV Pitocin per protocol for augmentation Continue with routine intrapartum cares as ordered.?? Patient encouraged to move and change positions to promote physiologic labor and .?? Nonpharmacologic comfort measures per patient preference. Candidate for analgesia of choice if desired. Patient planning waterbirth Anticipate progress to NVD. ?
[2025-05-19] MEDS: LACTATED RINGERS 1000 ML 1,000 ML 125 ML IV (12:07)
[2025-05-19] MEDS: OXYTOCIN 30 unit/500 ML in NS 30 UNIT/500 ML BAG IVPB (12:07)
--- NOTE | 2025-05-19 15:13 | W.PM.OBVAGDE ---
OB Procedure Vag Delivery Mother Details Mother Details: The patient is a 30 year-old, 2, Para 1, admitted on 05/18/25 at 37.1 weeks gestation. : 2 Para: 2 Weeks Gestation: 37.2 Admission Date: 05/18/25 Additional Details Amniotic Membrane Status: AROM Amniotic Membrane Rupture Date: 05/19/25 Amniotic Membrane Rupture Time: 06:55 Amniotic Membrane Fluid Description: Clear Analgesia/Anesthesia Type: Nitrous Oxide Waterbirth: Yes Pitcoin: Yes Intrapartal Events: Labor Augmentation Delivery augmentation: rupture of membranes and pitocin Labor Onset: 06:50 Complete: 14:21 Pushin:21 Heart: heart tones during second stage were Category I, moderate variability with + accelerations, no decelerations. Delivery Details Delivery Date: 05/19/25 Delivery Time: 14:45 Route of delivery: Gender: Female Viability: Alive; Heart Rate Present Position at Delivery: OA Delivery Details: 30?y.o?at 37.2 weeks.? Tory was admitted for spontaneous labor dilated overnight to 6cm at 37.2 weeks. AROM was done at 0655 for clear fluid. Tory's contractions did not increase in frequency or intensity despite her being up and changing positions frequently. She was started on IV Pitocin for augmentation and then progressed normally. She began to feel pressure and requested to get into the waterbirth tub. After some time in the tub she requested a cervical exam, she had an anterior lip so was positioned on hands and knees. She began to push occasionally with contractions but was not making progress, she requested counter pressure on her perineum to help her focus her push. Once this was applied she pushed well and baby then crowned and she delivered with the next contraction. ? ? She became complete at 1421.??She pushed in upright sitting position effectively.? Spontaneous vaginal delivery at 1445 of?a viable? female infant.??Delivered in vertex OA position.??Shoulders delivered easily.? Spontaneous cry noted.?? placed on maternal abdomen.??Cord?was clamped and cut after a 3 minute delay.??Nose and mouth were bulb suctioned.? Shoulder dystocia: no? Nuchal cord: yes times one, delivered through? Meconium stained?fluid: no? Water : yes? ? ? 8 at 1 minute and 8 at 5 minutes.? Weight is pending. ? Placenta delivered spontaneously and?complete?at 1503 with a?3 vessel?cord.?? Bleeding controlled with fundal massage.? ? Lacerations:? small labial abrasions ? Bleeding?post delivery?was: minimal. ?The fundus was firm to palpation.? Blood loss: 50?mL.? Blood loss measurement type: ? EBL? ? Sponge,?lap?and needles counts are correct.? Mother and were stable after delivery.? 1 Minute Interval Total Score: 8 5 Minute Interval Total Score: 8 Additional Details Shoulder Dystocia: No Placenta Delivery Time: 15:03 Placental Delivery Description: Spontaneous Procedure Done: Global Blood Loss: 50 Laceration: Superficial Blood Loss Measurement Type: EBL Bakri Used: No Sponge/Need Count Correct: Yes Cord Vessel Description: 3 Vessels, Nuchal Cord, Loose and Delivered through Event Summary Status: Mother and infant were stable after delivery. Disposition: floor
[2025-05-19] MEDS: ACETAMINOPHEN 500 MG TABLET 1000 MG PO (16:47)
[2025-05-20 00:10] VITALS: BP 123/83; PULSE 80; RESP 18; TEMP 36.7; O2SAT 97
[2025-05-20] MEDS: ACETAMINOPHEN 500 MG TABLET 1000 MG PO (00:12)
[2025-05-20 03:57] VITALS: BP 107/72; PULSE 76; RESP 20; O2SAT 96
[2025-05-20 09:00] VITALS: BP 113/76; PULSE 76; RESP 18; TEMP 36.7; O2SAT 96
[2025-05-20] MEDS: DOCUSATE SODIUM 100 MG CAPSULE PO (09:23)
--- NOTE | 2025-05-20 12:13 | PM.OBDSVD1 ---
DS: Providers Provider Date Seen: 05/20/25 Date of admission: 05/18/25 22:39 Primary care physician: Danica Faria APRN, [employer] Admitting Clinician: Barby Thompson CNM Attending Physician on discharge: Barby Thompson CNM Date of Discharge: 05/20/25 DS: Diagnosis Discharge Diagnosis (1) Lactating mother: Status: Acute (2) care following vaginal delivery: Status: Acute Exam Narrative: Exam Narrative: GENERAL APPEARANCE:? normal affect, alert, no distress? MOOD:? appropriate? CHEST:? clear to auscultation and percussion? HEART:? regular rate and rhythm? BREASTS: soft, nontender, no erythema, nipples intact? ABDOMEN:? soft, non-tender the uterine fundus is U/2 and is appropriate for the stage of recovery.? PERINEUM:? mild edema of the perineum, there is a superficial laceration that is healing well.? EXTREMITIES:? normal and no edema? Const: Vital Signs, click to edit/add: Vital Signs - 24 hr 05/19/25 12:27 05/19/25 13:34 05/19/25 15:03 Temperature 98.3 F Pulse Rate 95 86 Pulse Rate [Pulse Oximeter] Respiratory Rate 22 18 Blood Pressure 113/72 128/79 Blood Pressure [Le ft Arm] [facility]ulse [facility] 15:04 05/19/25 15:18 05/19/25 15:19 Temperature Pulse Rate 96 85 Pulse Rate [Pulse Oximeter] Respiratory Rate 18 Blood Pressure 125/80 120/79 Blood Pressure [Le ft Arm] Pulse [facility]xim[facility] 15:34 05/19/25 15:34 05/19/25 15:49 Temperature Pulse Rate 90 77 Pulse Rate [Pulse Oximeter] Respiratory Rate 18 Blood Pressure 113/71 114/73 Blood Pressure [Le ft Arm] Pulse [facility]ximetry [facility] 15:49 05/19/25 16:03 05/19/25 16:04 Temperature Pulse Rate 75 Pulse Rate [Pulse Oximeter] Respiratory Rate 18 18 Blood Pressure 116/75 Blood Pressure [Le ft Arm] Pulse Oximetry [facility] 16:18 05/19/25 16:19 05/19/25 16:34 Temperature Pulse Rate 85 83 Pulse Rate [Pulse Oximeter] Respiratory Rate 18 Blood Pressure 127/77 120/63 Blood Pressure [Le ft Arm] Pulse Oximetry Oxygen Delivery Me thod 05/19/25 16:34 05/19/25 16:48 05/19/25 16:49 Temperature 98.2 F Pulse Rate 74 Pulse Rate [Pulse Oximeter] Respiratory Rate 18 18 Blood Pressure 125/70 Blood Pressure [Le ft Arm] Pulse Oximetry Oxygen Delivery Me thod 05/19/25 20:42 05/20/25 00:10 05/20/25 03:57 Temperature 98.2 F 98.1 F Pulse Rate Pulse Rate [Pulse Oximeter] 79 80 76 Respiratory Rate 18 18 20 Blood Pressure Blood Pressure [Le ft Arm] 118/77 123/83 107/72 Pulse Oximetry 97 97 96 Oxygen Delivery Me thod Room Air Room Air Room Air 05/20/25 09:00 Temperature 98.0 F Pulse Rate Pulse Rate [Pulse Oximeter] 76 Respiratory Rate 28 H Blood Pressure Blood Pressure [Le ft Arm] 113/76 Pulse Oximetry 96 Oxygen Delivery Me thod Room Air Documenting provider has reviewed patient's vital signs: yes OB - DS: Summary Hospital Course Hospital Course: Tory is a 30 y.o. G 2 P 2 who was admitted to L & D for spontaneous labor. ?She had a NVD that was uncomplicated. The patient feels well. ?The pain is well controlled with current medications. ?She has no new complaints. ?She is breast feeding and reports things are going well. the patient has done well.? Vitals have been stable.? She has remained afebrile.? Has a good appetite, is tolerating a general diet. ?She is voiding without difficulty.? She is passing gas and has not had a bowel movement.? She is ambulating and denies any dizziness.? Has small amount of rubra lochia. She is planning NFP for prevention. She declines prescriptions for ibuprofen or Colace. Peripartum Data Infant delivery method: Vaginal Laceration description: Superficial Episiotomy description: None complications: none [place] Gender: Female Discharge Plan: Home Status at Discharge Functional status at discharge: independent ambulation Overall status at discharge: patient is progressing back to baseline Time Spent with Patient Time attestation: Total time spent providing and/or coordinating discharge services: Discharge Plan Discharge Disposition: Home, Self-Care Date of Admission: 05/18/25 22:39 Attending Provider on Discharge: Ada Keyes Primary Care Provider: Danica Faria Condition: Stable Anticipated Discharge Date/Time: 05/20/25 16:00 Discharge Medications: Continued DHA 200 mg capsule 200 mg PO DAILY magnesium 200 mg tablet 200 mg PO BID Discontinued valacyclovir [Valtrex] 500 mg tablet 500 mg PO BID Qty: 90 0RF Discharge Orders: Discharge Order (Routine); Ordered 05/20/25 Ordered By: Ada Keyes Patient Education: OB Vaginal/Breast Feeding Additional Instructions: Discharge instructions were reviewed with the patient including signs and symptoms of infection and home going medications Nothing vaginally for 6 weeks: no tampons or intercourse Do not drive while taking narcotic pain medication(s) Off Work or School for 8 weeks Symptoms to report to doctor: Bleeding that saturates more than one pad per hour Passing clots larger than the size of a golf ball Pain not relieved by prescribed medication Fever above 100.4 degrees Fahrenheit A foul vaginal odor Difficulty in emotions, mood, and functions Thoughts of hurting yourself and/or Painful, reddened area in your breast Any drainage, redness, or tenderness in your IV/epidural site Severe headache that doesn't improve after taking medications Changes in vision, including temporary loss of vision, blurred vision, and/or light sensitivity Upper abdominal pain (usually under ribs on the right side) Decrease in urination or painful, frequent urinating Chest pain Shortness of breath Tenderness or pain with redness and/swelling in the calf(s) of your leg 2-week visit: discuss feeding concerns, review control options and screen for anxiety/depression. 6-week visit for an annual exam. consultation services are available to all mothers and babies for the first year after delivery.? To make an appointment, please call [phone]. Activity Level: Activity as Tolerated Discharge Diet: Regular Follow Up Appointments: [facility] [Provider Group] Forms: [employer] Info Instructions
[2025-05-20 12:30] VITALS: BP 123/65; PULSE 68; RESP 16; O2SAT 96
== END 2025-05-20 16:05 | disposition home or self-care (01) | DRG 806 ==
LOC: OB OUT 22:40 → OB 22:40
PROVIDERS: Admitting Provider Advanced Practice Midwife; PCP Nurse Practitioner Family; Visit Provider Advanced Practice Midwife
DX: O98.32 Other infections with a predominantly sexual mode of transmission complicating childbirth (principal); O22.43 Hemorrhoids in pregnancy, third trimester; A60.00 Herpesviral infection of urogenital system, unspecified; O43.893 Other placental disorders, third trimester; O99.344 Other mental disorders complicating childbirth; F43.10 Post-traumatic stress disorder, unspecified; Z3A.37 37 weeks gestation of pregnancy; Z37.0 Single live birth
CPT/HCPCS: 36415; 86592; A9270; J7120

== ENCOUNTER 2025-05-25 11:29 | Emergency (ER) | payer OTHER, SELFPAY ==
--- OUTSIDE RECORDS SUMMARY | 2025-05-25 11:31 | XMS_ITS | Continuity of Care Document ---
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 It does not include entries that were removed or entered in error. Problem Status Onset Date Problem Type Date of Resolution Comments Source Pain in left thigh Inactive 12/02/2018 Condition [facility] Acne vulgaris Inactive 09/18/2018 Condition [facility] Dietary counseling and surveillance Active 09/09/2018 Condition [facility] Allergies, Adverse Reactions, Alerts Combined list of allergies from Department of Defense and Veterans Affairs facilities. It does not include entries that were removed or entered in error. Substance Category Reaction Severity Reaction type Status Date Reported Comments Source TETANUS,DI PHTHERIA TOX PED(PF) (TETANUS,D IPHTHERIA TO Drug allergy (disorder) Cough, Other: Whooping cough as a child active 6 [facility] tetanus-di phth toxoids (Td) adult/adol Propensity to adverse reactions to drug Cough Active 6 Unknown Organization Immunizations Combined list of available immunizations from the Department of Defense and Veterans Affairs facilities. Immunization Series Date Given Administered By Site Reaction Lot Number CVX Code Drug Tool Crib Manager Status Comments Source influenza, injectable, quadrivalent- pf 2022 [id number] 150 [employer] comple t ed influenza , injectabl e, quadrival ent-pf 11/24/22 Given Ambulat ory Pharmac y influenza, injectable, quadrivalent- pf 2020 [id number] 150 [employer] comple t ed influenza , injectabl e, quadrival ent-pf 07/14/21 Given Ambulat ory Pharmac y influenza, injectable, quadrivalent- pf 2020 [id number] 150 Seqirus complet ed influenza , injectabl e, quadrival ent-pf 11/04/20 Given Ambulat ory Pharmac y anthrax vaccine 2018 [id number] 24 Emergent Biosolutions complet ed anthrax vaccine 12/19/18 Given Ambulat ory Pharmac y anthrax vaccine 2 2018 [id number] 24 [employer] [place] ([facility]) complet ed anthrax vaccine DoD varicella virus vaccine 1 2017 UNK 21 Unknown (UNK) Not Given varicella virus vaccine DoD hepatitis A and hepatitis B vaccine 1 2017 UNK 104 Unknown (UNK) Not Given hepatitis A and hepatitis B vaccine DoD typhoid Vi capsular polysaccharid e vac 2017 [id number] 101 sanofi pasteur complet ed typhoid Vi capsular polysacch aride vac 07/21/18 Given Ambulat ory Pharmac y anthrax vaccine 2017 [id number] 24 [employer] complet ed anthrax vaccine 07/21/18 Given Ambulat ory Pharmac y anthrax vaccine 1 2017 [id number] [facility] complet ed anthrax vaccine DoD typhoid Vi capsular polysaccharid e vaccine 1 2017 [id number] 101 Sanofi Pasteur (PMC) complet ed typhoid Vi capsular polysacch aride vaccine DoD influenza, injectable, quadrivalent- pf 2017 [id number] 150 Seqirus complet ed influenza , injectabl e, quadrival ent-pf 07/19/18 Given Ambulat ory Pharmac y Influenza, injectable, quadrivalent, preservative free 1 2017 [id number] 150 Seqirus (SEQ) comple t ed Influenza , injectabl e, quadrival ent, preservat radha free DoD tetanus toxoid, reduced diphtheria toxoid, and acellular pertu is vaccine, adsorbed 1 2017 UNK 115 Unknown (UNK) Not Given tetanus toxoid, reduced diphtheri a toxoid, and acellular pertussis vaccine, adsorbed DoD influenza, seasonal, injectable-pf 2016 [id number] 140 GlaxoSmithKli ne complet ed influenza , seasonal, injectabl e-pf 07/04/17 Given Ambulat ory Pharmac y Influenza, seasonal, injectable, preservative free 1 2016 [id number] 140 SmithKline (SKB) complet ed Influenza , seasonal, injectabl e, preservat radha free DoD influenza, injectable, quadrivalent- pf 2015 [id number] 150 Unknown complet ed influenza , injectabl e, quadrival ent-pf 08/31/16 Given Ambulat ory Pharmac y Influenza, injectable, quadrivalent, preservative free 1 2015 [id number] 150 Unknown (UNK) comple t ed Influenza , injectabl e, quadrival ent, preservat radha free DoD influenza, seasonal, injectable-pf 2015 [id number] 140 CSL Behring complet ed influenza , seasonal, injectabl e-pf 03/23/16 Given Ambulat ory Pharmac y tetanus-dipht h toxoids (Td) adult/adol 2015 [id number] 09 sanofi pasteur complet ed tetanus-d iphth toxoids (Td) adult/ado l 03/23/16 Given Ambulat ory Pharmac y adenovirus vaccine, live 2015 [id number] 143 Teva Pharmaceutica ls complet ed adenoviru s vaccine, live 03/23/16 Given Ambulat ory Pharmac y meningococcal A,C,Y,W-135 (MCV4P) 2015 [id number] 114 sanofi pasteur complet ed meningoco ccal A,C,Y,W-1 35 (MCV4P) 03/23/16 Given Ambulat ory Pharmac y poliovirus vaccine, inactivated 2015 [id number] 10 sanofi pasteur complet ed polioviru s vaccine, inactivat ed 03/23/16 Given Ambulat ory Pharmac y tetanus and diphtheria toxoids, adsorbed, preservative free, for adult use (2 Lf of tetanus toxoid and 2 Lf of diphtheria toxoid) 1 2015 [id number] 09 Sanofi Pasteur (PMC) complet ed tetanus and diphtheri a toxoids, adsorbed, preservat radha free, for adult use (2 Lf of tetanus toxoid and 2 Lf of diphtheri a toxoid) DoD poliovirus vaccine, inactivated 1 2015 [id number] 10 Sanofi Pasteur (PMC) complet ed polioviru s vaccine, inactivat ed DoD meningococcal polysaccharid e (groups A, C, Y and W-135) diphtheria toxoid conjugate vaccine (MCV4P) 1 2015 [id number] 114 Sanofi Pasteur (PMC) complet ed meningoco ccal polysacch aride (groups A, C, Y and W-135) diphtheri a toxoid conjugate vaccine (MCV4P) DoD Influenza, seasonal, injectable, preservative free 1 2015 [id number] 140 CSL [employer] (CSL) complet ed Influenza , seasonal, injectabl e, preservat radha free DoD Adenovirus, type 4 and type 7, live, oral 1 2015 [id number] 143 2080 Media (BRR) complet ed Adenoviru s, type 4 and type 7, live, oral DoD measles/mumps /rubella virus vaccine 1999 UNK 03 Unknown complet ed measles/m umps/rube lla virus vaccine 06/18/00 Given Ambulat ory Pharmac y measles, mumps and rubella virus vaccine 2 1999 UNK 03 Unknown (UNK) comple t ed measles, mumps and rubella virus vaccine DoD measles/mumps /rubella virus vaccine 1995 UNK 03 Unknown complet ed measles/m umps/rube lla virus vaccine 07/30/96 Given Ambulat ory Pharmac y measles, mumps and rubella virus vaccine 1 1995 UNK 03 Unknown (UNK) comple t ed measles, mumps and rubella virus vaccine DoD Encounters Combined list of: 1) Encounters from Department of Veterans Affairs facilities going backup to the last 18 months, not all VA inpatient encounters are included; 2) Encounters from the Department of Defense facilities going backup to 280 months. Location Location Details Encounter Type Encounter Number Reason For Visit Attending Provider ADM Date DC Date Status Disposition Source [facility] C Immunizat ions (Post)) OUTPATIENT [id number] Notes Entered by: Maira ALVARADO 22 Mar 2016 1317 ------- ------- ------- ------- -- PAT VACA 03/22 Released w/o Limitations [facility] Immuniz ations (Post)) [facility] Physical Therapy) OUTPATIENT [id number] Notes Entered by: Alisson SZYMANSKI 09 May 2016 0705 ------- ------- ------- ------- -- Initial - JONAH Rubi 05/09 Released w/o Limitations [facility] ) [facility] Ambulator y) OUTPATIENT [id number] Notes Entered by: YANELIS LAGOS 21 May 2016 0548 ------- ------- ------- ------- -- Pain when juliusnardaFERMÍN Sawyer 05/21 Released w/o Limitations [facility] Ambulat ory) [facility]([address]) OUTPATIENT [id number] Notes Entered by: BOB BARRIENTOS 22 Jul 2016 0823 ------- ------- ------- ------- -- LORENZA QUIROZ 07/22 Released w/o Limitations [facility]([address]) [place]([facility] [address]) OUTPATIENT [id number] Notes Entered by: DINO HILL 21 Jul 2018 1206 ------- ------- ------- ------- -- FIORDALIZA-ABBE PALMA 07/21 Released w/o Limitations [place]([facility] [address]) Theater Facility OUTPATIENT [id number] Theater Provider 09/09 Released w/o Limitations [facility] OUTPATIENT [id number] Theater Provider 09/18 Released w/o Limitations [facility] OUTPATIENT [id number] Theater Provider 09/24 Released w/o Limitations [facility] OUTPATIENT [id number] Theater Provider 12/02 Released with Work/Duty Limitations Theater Facilit y [place]([facility] [address]) OUTPATIENT [id number] Notes Entered by: ARIE MARTIN 10 May 2019 1619 ------- ------- ------- ------- -- JUAN CARLOS DEVLIN VIKTORALY CANELAGLADIS 05/10 Released w/o Limitations [place]([facility] [address] [address]) [place] Hearing Conservat ion) OUTPATIENT [id number] Notes Entered by: NEIL CALL 11 May 2019 0810 ------- ------- ------- ------- -- post THAI CANADA 05/11 Released w/o Limitations [place] Hearing Conserv ation) [place] Physical Exam Clinic) OUTPATIENT [id number] Notes Entered by: ANTHONY ALFARO 11 May 2019 0814 ------- ------- ------- ------- -- shpe - 34id CHRISTOS TEIXEIRA 05/11 Released w/o Limitations [place] Physica l Exam Clinic) Procedures Combined list of: 1) Procedures from Department of Veterans Affairs facilities going back up to thelast 18 months, not all VA non-surgical procedures are included; 2) All procedures from the Department of Defense facilities. Procedure Procedure Type Code Date Perfomer Comments Sour e No data available for this section Ambulato ry Pharmacy FOOT, ARCH SUPPORT, REMOVABLE, PREMOLDED, LONGITUDINAL, EACH 05/09/20 16 [facility] TETANUS AND DIPHTHERIA TOXOIDS ADSORBED (TD), PRESERVATIVE FREE, WHEN ADMINISTERED TO INDIVIDUALS 7 YEARS OR OLDER, FOR INTRAMUSCULAR USE 03/22/20 16 [facility] EAR MOLD/INSERT, NOT DISPOSABLE, ANY TYPE 03/21/20 16 [facility] PATIENT EDUCATION, NOT OTHERWISE CLASSIFIED, NON-PHYSICIAN PROVIDER, GROUP, PER SESSION 05/11/20 19 [facility] SCREENING TEST OF VISUAL ACUITY, QUANTITATIVE, BILATERAL 05/10/20 19 [facility] TYPHOID VACCINE, CAPSULAR POLYSACCHARIDE (VICPS), FOR INTRAMUSCULAR USE 07/21/20 18 [facility] ADMINISTRATION OF PATIENT-FOCUSED HEALTH RISK ASSESSMENT INSTRUMENT (EG, HEALTH HAZARD APPRAISAL) WITH SCORING AND DOCUMENTATION, PER STANDARDIZED INSTRUMENT 07/21/20 18 [facility] Threshold Audiogram (Pure Tone) Automated Threshold Audiogram (Pure Tone) Automated [id number] 05/11/20 19 DEDE MENDOZA I [facility] Patient education, not otherwise cla ified, non-physician provider, group, per se ion 05/11/20 19 DEDE MENDOZA I [facility] Screening Test Of Visual Acuity, Quantitative, Bilateral Screening Test Of Visual Acuity, Quantitative, Bilateral [id number] 05/10/20 19 ALY GERMAN [facility] Foot, arch support, removable, premolded, longitudinal, each 05/09/20 16 JONAH ROSAS [facility] Physical Therapy Education Orthotics Training Initial 15 Min 05/09/20 16 JONAH ROSAS Exercises A isted Exercises For ROM Exercises Assisted Exercises For ROM [id number] 05/09/20 16 JONAH ROSAS [facility] Athletic Training Evaluation Athletic Training Evaluation 75002 05/09/20 16 JONAH ROSAS [facility] Td Vaccine Seven Years Of Age And Above Preservative Free Td Vaccine Seven Years Of Age And Above Preservative Free 41312 03/23/20 16 SALVATOREPAT [facility] Influenza Split Virus Vacc Age 3+ Years IM Preservative Free 03/23/20 16 [facility] Vaccines Viral Polio, Inactivated (Salk) Vaccines Viral Polio, Inactivated (Salk) 83166 03/23/20 16 [facility] Immunization Administration Each Additional Vaccine Immunization Administration Each Additional Vaccine 58720 03/23/20 16 [facility] Immunization Administration One Vaccine Immunization Administration One Vaccine 38720 03/23/20 16 [facility] Vaccines Adenovirus Type 4 Live, For Oral Use Vaccines Adenovirus Type 4 Live, For Oral Use 86755 03/23/20 16 [facility] Vaccines Adenovirus Type 7 Live, For Oral Use Vaccines Adenovirus Type 7 Live, For Oral Use 43743 03/23/20 16 [facility] Immunization Admin Intranasal / Oral Each Additional Vaccine Immunization Admin Intranasal / Oral Each Additional Vaccine 85329 03/23/20 16 [facility] Social History Combined list of available smoking, tobacco, and other social history from Department of Defense and Veterans Affairs facilities. Social History Type Response Date Comment Sour e This section is an empty social history section. DoD Assessment and Plan Combined list of future care activities from Department of Defense and Veterans Affairs facilities (e.g., assessment and plan notes, appointments, orders, and referrals). Additional future care activities may be listed in the Plan of Care section. Result Assessment and Plan Date Source Assessment and Plan No data available for this section 05/25/2025 Ambulatory Pharmacy Functional Status Combined list of recent functional and cognitive assessments recorded at [facility] Functional [place] Measurement (FIM) Scale: 1 = Total Assistance (Subject = 0% +), 2 = Maximal Assistance (Subject = 25% +), 3 = Moderate Assistance (Subject = 50% +), 4 = Minimal Assistance (Subject = 75% +), 5 = Supervision, 6 = Modified [place] (Device), 7 = Complete [place] (Timely, Safely). Assessment Date/Time Source Assessment Type Assessment Skill Assessment Score Assessment Details No data available for this section
[2025-05-25 11:32] VITALS: BP 109/75; PULSE 88; RESP 18; TEMP 36.4; O2SAT 98; BMI 22.6
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
--- NOTE | 2025-05-25 11:38 | ED_ITS ---
HPI - General Adult General Date Seen: 05/25/25 Chief complaint: Cough Stated complaint: respiratory symptoms Time Seen by Provider: 05/25/25 11:38 History of Present Illness HPI narrative: 37-year-old female who is currently 6 days , (had normal sp ontaneous vaginal delivery at 37 weeks gestation 05/19) presenting to the ER today for cough, chest tightness and respiratory symptoms. Symptoms began 5 days ago, when she was 1 day . She has had symptoms of a dry cough ongoing for the past several days along with occasional burning in her lungs. She has a mild sore throat. She has had some chills but no objective fevers. No body aches. No headache. No earache. No nausea vomiting. Normal bowel movements. She has not had any swelling in her legs. No rash. No known sick exposures. Her baby and other family members are not sick. She is a nonsmoker. No history of asthma. Related Data Home Medications ?Medication ?Instructions ?Recorded ?Confirmed docosahexaenoic acid 200 mg 200 mg PO DAILY 04/23/24 0 05/25/25 capsule ( DHA) magnesium 200 mg tablet 200 mg PO BID 03/16/2505/25 Allergies Allergy/AdvReac Type Severity Reaction Status Date / Time Pertussis Vaccines Allergy Severe got Verified 05/25/25 11:37 pertussis from injection [facility] Medical History Primary genital herpes simplex infection ?A60.00 - Herpesviral infection of urogenital system, unspecified (ICD-10) Atypical mole ?D22.9 - Melanocytic nevi, unspecified (ICD-10) Localized swelling, mass and lump, head ?R22.0 - Localized swelling, mass and lump, head (ICD-10) Normal spontaneous vaginal delivery ?O80 - Encounter for full-term uncomplicated delivery (ICD-10) Surgical History [place] teeth extracted ?K08.409 - Partial loss of teeth, unspecified cause, unspecified class (ICD- 10) History of bunionectomy ?Z98.890 - Other specified postprocedural states (ICD-10) History of appendectomy ?Z90.49 - Acquired absence of other specified parts of digestive tract (ICD- 10) Family History Mother No problems noted. Father Arthritis Stroke Staph infection Myocardial infarction Sister No problems noted. Sister No problems noted. Sister No problems noted. Maternal Grandmother Diabetes Pancreatic cancer Maternal Grandfather Colon cancer, Onset Age: 80 Paternal Grandfather No problems noted. 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: Florencio Lives with: Manish Matias Pets: 1 dog Abuse: Denies past/present Special Diet: Denies Ok with a blood transfusion: yes Culture or religion beliefs: denies RISK FACTORS Exercise Times/wk: pilates, yoga, and weights; 5x per week Hx of Depression and/or Anxiety/other mood disorder: no hx, mild depression Seat Belt Use: Routinely Smoking: Denies past/present Alcohol/day: Denies while Caffeine: none Drug Use: Denies past/present Chicken Pox: Yes as a child MRSA: Denies What is your current living situation?: I presently have a place to live Problems where you live: no known problems In the past 12 months, utilities in danger of being shut off: no In past 12 months, lack of transportation kept you from medical appts, meetings, work, or getting things needed for daily living: no In the past 12 mos, have been you worried that your food would run out before you had money to buy more?: never true In the past 12 mos, the food you bought just didn't last and you didn't have money to buy more?: never true Smoking Status: Never smoker How often do you have a drink containing alcohol: monthly or less AUDIT-C Alcohol total score: 1 Non-prescribed substance use: denies use How often does anyone, including family, friends and others, physically hurt you : never How often does anyone, including family, friends and others, insult or talk down to you: never How often does anyone, including family, friends and others, threaten you with harm: never How often does anyone, including family, friends and others, scream or curse at you: never Exam Narrative: Exam Narrative: Constitutional: Appears well-developed and well-nourished. Alert. Conversant. Non toxic. Her baby is sleeping in its seat at her side. HENT: Head: Atraumatic. Nose: Nose normal. TMs normal. Ear canals and mastoids normal bilaterally. Mouth/Throat: Oral mucosa is clear and moist. no trismus. Pharynx normal. Tonsils symmetric. No tonsillar enlargement, erythema, or exudate. Eyes: Conjunctivae normal. EOM normal. Pupils equal, round, and reactive to light. No scleral icterus. Neck: Normal range of motion. Neck supple. No tracheal deviation present. Cardiovascular: Normal rate, regular rhythm. No gallop. No friction rub. No murmur heard. Symmetric radial artery pulses Pulmonary/Chest: Effort normal. No stridor. No respiratory distress. No wheezes. Question left basilar rales. No rhonchi . No tenderness. Abdominal: Soft. No distension. No mass. No tenderness. No rebound. No guarding. Musculoskeletal: RUE: Normal range of motion. No tenderness. No deformity LUE: Normal range of motion. No tenderness. No deformity RLE: Normal range of motion. No edema. No tenderness. No deformity LLE: Normal range of motion. No edema. No tenderness. No deformity Lymph: No cervical adenopathy. Neurological: Alert and oriented to person, place, and time. Normal strength. CN II-VII intact. No sensory deficit. GCS eye subscore is 4. GCS verbal subscore is 5. GCS motor subscore is 6. Normal coordination Skin: Skin is warm and dry. No rash noted. No pallor. Normal capillary refill. Psychiatric: Normal mood. Normal affect. Const: Vital Signs, click to edit/add: Vital Signs - 24 hr 05/25/25 11:32 Temperature 97.5 F L Pulse Rate [Right Pulse Oximeter] 88 Respiratory Rate 18 Blood Pressure [Ri ght Upper Arm] 109/75 Pulse Oximetry 98 Oxygen Delivery Me thod Room Air Course Vital Signs Vital signs: Initial Vital Signs Temperature 97.5 F L 05/25/25 11:32 Temperature Source Temporal Artery Scan 05/25/25 11:32 Pulse Rate 88 05/25/25 11:32 Pulse Rhythm Regular 05/25/25 11:32 Pulse Strength 3+ Normal 05/25/25 11:32 Respiratory Rate 18 05/25/25 11:32 Blood Pressure 109/75 05/25/25 11:32 Blood Pressure Mean 86 05/25/25 11:32 Blood Pressure Position Sitting 05/25/25 11:32 Pulse Oximetry 98 05/25/25 11:32 Oxygen Delivery Method Room Air 05/25/25 11:32 Vital Signs Temperature 97.5 F L 05/25/25 11:32 Pulse Rate 88 05/25/25 11:32 Respiratory Rate 18 05/25/25 11:32 Blood Pressure 109/75 05/25/25 11:32 Pulse Oximetry 98 05/25/25 11:32 Oxygen Delivery Method Room Air 05/25/25 11:32 Temperature 97.5 F L 05/25/25 11:32 Pulse Rate 88 05/25/25 11:32 Respiratory Rate 18 05/25/25 11:32 Blood Pressure 109/75 05/25/25 11:32 Pulse Oximetry 98 05/25/25 11:32 Oxygen Delivery Method Room Air 05/25/25 11:32 Medical Decision Making [facility] Narrative Medical decision making narrative: This patient presents for evaluation of cough ongoing now for 5 6 days along with little bit of chest burning.. This is consistent with an upper respiratory tract infection. Viral testing negative for influenza, RSV, COVID.. There is no signs at this point of serious bacterial infection such as OM, RPA, epiglottitis, OPERATING ROOM SCHEDULER, strep pharyngitis, pneumonia, sinusitis, meningitis, bacteremia, serious bacterial infection. Given duration of cough with status we did do chest x-ray which is normal. She has no hypoxia and no respiratory distress There are no gastrointestinal symptoms at this point and no signs of dehydration. She has no lower extremity swelling or other symptoms of preeclampsia, peripartum cardiomyopathy. At this point I do not think she needs lab workup, EKG. She is not having any tachycardia, hypoxia, or other vital signs indicating a PE. Is very low risk other than her state. At this point would hold off on D-dimer testing or CT tPA given the risk of radiation from chest CT. Close followup with primary care physician or return to the ER if worsening symptoms is indicated. Return to ED for fever , shortness of breath, worsening cough, vomiting, confusion, or other worsening. Lab Data Labs: Lab Results 05/25/25 Range/Units 11:51 SARS-CoV-2 (PCR) Negative SARS-CoV-2 (Negative) Influenza Type A (PCR) Negative PCR FLU A (Negative) Influenza Type B (PCR) Negative PCR FLU B (Negative) RSV (PCR) Negative PCR RSV (Negative) Imaging Data Chest x-ray: Attestation: I have reviewed the pertinent imaging results. My impression: normal. Radiologist's impression: FINDINGS: Clear lungs. No pneumothorax. No pleural effusion. No focal or diffuse infiltrate. Normal heart size and pulmonary vascularity. Normal included skeleton. When compared to the prior study there has been normal appropriate growth and maturation. IMPRESSION: Normal two-view chest x-ray. Discharge Plan Discharge Clinical Impression: Cough Patient Disposition: Home, Self-Care Condition: Stable Instructions: Upper Respiratory Infection (ED) Additional Instructions: As we discussed, please come back to the ER right away if you have worsening cough, trouble breathing, high fever. If your symptoms are not dramatically improved within 2-3 days please recheck with her doctor or come back to the ER.. Your doing the job taking care of yourself. Please drink plenty of fluids and stay hydrated. You can also use medicines at home such as tea, lemon water, honey, humidifier to help reduce her cough. You can use [id number]-tlbauki cough medicine that contains dextromethorphan and if needed. Avoid cough medicines that contain codeine or phenylephrine. Prescriptions: No Action DHA 200 mg capsule 200 mg PO DAILY magnesium 200 mg tablet 200 mg PO BID Follow Up/Referrals: Danica Faria, TRANSISTOR TESTER, RAM PRESS OPERATOR [Primary Care Provider, Family Practice] Stand Alone Forms: [employer] Info Instructions
--- NOTE | 2025-05-25 11:52 | CRLHL7_ITS ---
For Patients: As a result of the Century Cures Act, medical imaging exams and procedure reports are released immediately into your electronic medical record. You may view this report before your referring provider. If you have questions, please contact your health care provider. INDICATION: Cough. One week . TECHNIQUE: PA and lateral chest x-ray. COMPARISON: October 04, 2010. FINDINGS: Clear lungs. No pneumothorax. No pleural effusion. No focal or diffuse infiltrate. Normal heart size and pulmonary vascularity. Normal included skeleton. When compared to the prior study there has been normal appropriate growth and maturation. IMPRESSION: Normal two-view chest x-ray. Dictated by Manolo Ross MD @ 05/25/2025 12:20:41 PM (Electronically Signed)
--- OUTSIDE RECORDS SUMMARY | 2025-05-25 12:28 | XMS_ITS | Continuity of Care Document ---
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 It does not include entries that were removed or entered in error. Problem Status Onset Date Problem Type Date of Resolution Comments Source Pain in left thigh Inactive 12/02/2018 Condition [facility] Acne vulgaris Inactive 09/18/2018 Condition [facility] Dietary counseling and surveillance Active 09/09/2018 Condition [facility] Allergies, Adverse Reactions, Alerts Combined list of allergies from Department of Defense and Veterans Affairs facilities. It does not include entries that were removed or entered in error. Substance Category Reaction Severity Reaction type Status Date Reported Comments Source TETANUS,DI PHTHERIA TOX PED(PF) (TETANUS,D IPHTHERIA TO Drug allergy (disorder) Cough, Other: Whooping cough as a child active 6 [facility] tetanus-di phth toxoids (Td) adult/adol Propensity to adverse reactions to drug Cough Active 6 Unknown Organization Immunizations Combined list of available immunizations from the Department of Defense and Veterans Affairs facilities. 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 Status Comments Source influenza, injectable, quadrivalent- pf 2022 [id number] 150 [employer] comple t ed influenza , injectabl e, quadrival ent-pf 11/24/22 Given Ambulat ory Pharmac y influenza, injectable, quadrivalent- pf 2020 [id number] 150 [employer] comple t ed influenza , injectabl e, quadrival ent-pf 07/14/21 Given Ambulat ory Pharmac y influenza, injectable, quadrivalent- pf 2020 [id number] 150 Seqirus complet ed influenza , injectabl e, quadrival ent-pf 11/04/20 Given Ambulat ory Pharmac y anthrax vaccine 2018 [id number] 24 Emergent Biosolutions complet ed anthrax vaccine 12/19/18 Given Ambulat ory Pharmac y anthrax vaccine 2 2018 [id number] 24 [employer] [place] ([facility]) complet ed anthrax vaccine DoD varicella virus vaccine 1 2017 UNK 21 Unknown (UNK) Not Given varicella virus vaccine DoD hepatitis A and hepatitis B vaccine 1 2017 [id number] 104 Unknown (UNK) Not Given hepatitis A and hepatitis B vaccine DoD typhoid Vi capsular polysaccharid e vac 2017 [id number] 101 sanofi pasteur complet ed typhoid Vi capsular polysacch aride vac 07/21/18 Given Ambulat ory Pharmac y anthrax vaccine 2017 [id number] 24 [employer]gent [employer] complet ed anthrax vaccine 07/21/18 Given Ambulat ory Pharmac y anthrax vaccine 1 2017 [id number] 24 [facility] complet ed anthrax vaccine DoD typhoid Vi capsular polysaccharid e vaccine 1 2017 [id number] 101 Sanofi Pasteur (PMC) complet ed typhoid Vi capsular polysacch aride vaccine DoD influenza, injectable, quadrivalent- pf 2017 [id number] 150 Seqirus complet ed influenza , injectabl e, quadrival ent-pf 07/19/18 Given Ambulat ory Pharmac y Influenza, injectable, quadrivalent, preservative free 1 2017 [id number] 150 Seqirus (SEQ) comple t ed Influenza [...] free DoD influenza, injectable, quadrivalent- pf 2015 [id number] 150 Unknown complet ed influenza , injectabl e, quadrival ent-pf 08/31/16 Given Ambulat ory Pharmac y Influenza, injectable, quadrivalent, preservative free 1 2015 [id number] 150 Unknown (UNK) comple t ed Influenza , injectabl e, quadrival ent, preservat radha free DoD influenza, seasonal, injectable-pf 2015 [id number] 140 CSL Behring complet ed influenza , seasonal, injectabl e-pf 03/23/16 Given Ambulat ory Pharmac y tetanus-dipht h toxoids (Td) adult/adol 2015 [id number] 09 sanofi pasteur complet ed tetanus-d iphth toxoids (Td) adult/ado l 03/23/16 Given Ambulat ory Pharmac y adenovirus vaccine, live 2015 [id number] 143 Teva Pharmaceutica ls complet ed adenoviru s vaccine, live 03/23/16 Given Ambulat ory Pharmac y meningococcal A,C,Y,W-135 (MCV4P) 2015 [id number] 114 sanofi pasteur complet ed meningoco ccal A,C,Y,W-1 35 (MCV4P) 03/23/16 Given Ambulat ory Pharmac y poliovirus vaccine, inactivated 2015 [id number] 10 sanofi pasteur complet ed polioviru s vaccine, inactivat ed 03/23/16 Given Ambulat ory Pharmac y tetanus and diphtheria toxoids, adsorbed, preservative free, for adult use (2 Lf of tetanus toxoid and 2 Lf of diphtheria toxoid) 1 2015 [id number] 09 Sanofi Pasteur (PMC) complet ed tetanus and diphtheri a toxoids, adsorbed, preservat radha free, for adult use (2 Lf of tetanus toxoid and 2 Lf of diphtheri a toxoid) DoD poliovirus vaccine, inactivated 1 2015 [id number] 10 Sanofi Pasteur (PMC) complet ed polioviru s vaccine, inactivat ed DoD meningococcal polysaccharid e (groups A, C, Y and W-135) diphtheria toxoid conjugate vaccine (MCV4P) 1 2015 [id number] 114 Sanofi Pasteur (PMC) complet ed meningoco ccal polysacch aride (groups A, C, Y and W-135) diphtheri a toxoid conjugate vaccine (MCV4P) DoD Influenza, seasonal, injectable, preservative free 1 2015 [id number] 140 CSL DibspaceherapVidit[employer] Inc. (CSL) complet ed Influenza , seasonal, injectabl e, preservat radha free DoD Adenovirus, type 4 and type 7, live, oral 1 2015 [id number] 143 [employer] (BRR) complet ed Adenoviru s, type 4 [...] ADM Date DC Date Status Disposition Source [facility] C Immunizat ions (Post)) OUTPATIENT [id number] Notes Entered by: Maira ALVARADO 22 Mar 2016 1317 ------- ------- ------- ------- -- PAT VACA 03/22 Released w/o Limitations [facility] Immuniz ations (Post)) [facility] Physical Therapy) OUTPATIENT [id number] Notes Entered by: Alisson SZYMANSKI 09 May 2016 0705 ------- ------- ------- ------- -- Initial - JONAH Rubi 05/09 Released w/o Limitations [facility]ica [facility] Therapy ) [facility] Ambulator y) OUTPATIENT [id number] Notes Entered by: YANELIS LAGOS 21 May 2016 0548 ------- ------- ------- ------- -- Pain when juliusnardaFERMÍN Sawyer 05/21 Released w/o Limitations [facility] Ambulat ory) [facility]([address]) OUTPATIENT [id number] Notes Entered by: BOB BARRIENTOS 22 Jul 2016 0823 ------- ------- ------- ------- -- LORENZA QUIROZ 07/22 Released w/o Limitations [facility]([address]) [place]([facility] [address]) OUTPATIENT [id number] Notes Entered by: DINO HILL 21 Jul 2018 1206 ------- ------- ------- ------- -- FIORDALIZA-ABBE PALMA 07/21 Released w/o Limitations [place]([facility] [address]) Theater Facility OUTPATIENT [id number] Theater Provider 09/09 Released w/o Limitations [facility] OUTPATIENT [id number] Theater Provider 09/18 Released w/o Limitations [facility] OUTPATIENT [id number] Theater Provider 09/24 Released w/o Limitations Theater [facility] OUTPATIENT [id number] Theater Provider 12/02 Released with Work/Duty Limitations Theater Facilit [facility] [place]([facility] [address]) OUTPATIENT [id number] Notes Entered by: ARIE MARTIN 10 May 2019 1619 ------- ------- ------- ------- -- JUAN CARLOS DEVLIN VIKTORALY CANELAMARIA DEL CARMEN 05/10 Released w/o Limitations [place]([facility] [address] [address]) [place] Hearing Conservat ion) OUTPATIENT [id number] Notes Entered by: NEIL CALL 11 May 2019 0810 ------- ------- ------- ------- -- post THAI CANADA 05/11 Released w/o Limitations [place]) [place] Physical Exam Clinic) OUTPATIENT [id number] Notes Entered by: ANTHONY ALFARO 11 May 2019 0814 ------- ------- ------- ------- -- shpe - 34id CHRISTOS TEIXEIRA 05/11 Released w/o Limitations [place] Physica l Exam Clinic) Procedures Combined list of: 1) Procedures from Department of Veterans Affairs facilities going back up to thelast 18 months, not all VA non-surgical procedures are included; 2) All procedures from the Department of Defense facilities. Procedure Procedure Type Code Date Perfomer Comments Sour e FOOT, ARCH SUPPORT, REMOVABLE, PREMOLDED, LONGITUDINAL, EACH 05/09/20 16 [facility] TETANUS AND DIPHTHERIA TOXOIDS ADSORBED (TD), PRESERVATIVE FREE, WHEN ADMINISTERED TO INDIVIDUALS 7 YEARS OR OLDER, FOR INTRAMUSCULAR USE 03/22/20 16 [facility] EAR MOLD/INSERT, NOT DISPOSABLE, ANY TYPE 03/21/20 16 [facility] PATIENT EDUCATION, NOT OTHERWISE CLASSIFIED, NON-PHYSICIAN PROVIDER, GROUP, PER SESSION 05/11/20 19 [facility] SCREENING TEST OF VISUAL ACUITY, QUANTITATIVE, BILATERAL 05/10/20 19 [facility] TYPHOID VACCINE, CAPSULAR POLYSACCHARIDE (VICPS), FOR INTRAMUSCULAR USE 07/21/20 18 [facility] ADMINISTRATION OF PATIENT-FOCUSED HEALTH RISK ASSESSMENT INSTRUMENT (EG, HEALTH HAZARD APPRAISAL) WITH SCORING AND DOCUMENTATION, PER STANDARDIZED INSTRUMENT 07/21/20 18 [facility] Threshold Audiogram (Pure Tone) Automated Threshold Audiogram (Pure Tone) Automated [id number] 05/11/20 19 DEDE MENDOZA I [facility] Patient education, not otherwise cla ified, non-physician provider, group, per se ion 05/11/20 19 DEDE MENDOZA I [facility] Screening Test Of Visual Acuity, Quantitative, Bilateral Screening Test Of Visual Acuity, Quantitative, Bilateral [id number] 05/10/20 19 ALY GERMAN [facility] Foot, arch support, removable, premolded, longitudinal, each 05/09/20 16 JONAH ROSAS [facility] Physical Therapy Education Orthotics Training Initial 15 Min 05/09/20 16 JONAH ROSAS Exercises A isted Exercises For ROM Exercises Assisted Exercises For ROM 12038 05/09/20 16 JONAH ROSAS [facility] Athletic Training Evaluation Athletic Training Evaluation 99634 05/09/20 16 JONAH ROSAS [facility] Td Vaccine Seven Years Of Age And Above Preservative Free Td Vaccine Seven Years Of Age And Above Preservative Free 04685 03/23/20 16 [facility] Influenza Split Virus Vacc Age 3+ Years IM Preservative Free 03/23/20 16 [facility] Vaccines Viral Polio, Inactivated (Salk) Vaccines Viral Polio, Inactivated (Salk) 65567 03/23/[address] [facility] Immunization Administration Each Additional Vaccine Immunization Administration Each Additional Vaccine 50104 03/23/[address] [facility] Immunization Administration One Vaccine Immunization Administration One Vaccine 94300 03/23/[address] [facility] Vaccines Adenovirus Type 4 Live, For Oral Use Vaccines Adenovirus Type 4 Live, For Oral Use 78822 03/23/[address] [facility] Vaccines Adenovirus Type 7 Live, For Oral Use Vaccines Adenovirus Type 7 Live, For Oral Use 94902 03/23/[address] [facility] Immunization Admin Intranasal / Oral Each Additional Vaccine Immunization Admin Intranasal / Oral Each Additional Vaccine 77540 03/23/[address] [facility] No data available for this section Ambulato ry Pharmacy Social History Combined list of available smoking, [...] at Department of Defense and Veterans [facility] [place] Functional Morton Measurement (FIM) Scale: 1 = Total Assistance (Subject = 0% +), 2 = Maximal Assistance (Subject = 25% +), 3 = Moderate Assistance (Subject = 50% +), 4 = Minimal Assistance (Subject = 75% +), 5 = Supervision, 6 = Modified Morton (Device), 7 = Complete Morton (Timely, Safely). Assessment Date/Time Source Assessment Type Assessment Skill Assessment Score Assessment Details No data available for this section
[2025-05-25 12:49] LABS: PCR FLU A Negative PCR FLU A (Negative); PCR FLU B Negative PCR FLU B (Negative); PCR RSV Negative PCR RSV (Negative); SARS PCR* Negative SARS-CoV-2 (Negative)
== END 2025-05-25 13:21 | disposition home or self-care (01) ==
PROVIDERS: Emergency Provider Emergency Medicine; PCP Nurse Practitioner Family
DX: R05.9 Cough, unspecified (principal)
CPT/HCPCS: 71046; 87631; 99282; 99283; 99284

== ENCOUNTER 2025-05-26 09:17 | Outpatient (CLI) | payer OTHER, SELFPAY ==
--- NOTE | 2025-05-26 13:43 | W.PM.LAC.MC ---
Consult Note - Mom Date of Visit Date of visit: 05/26/25 Reason for consultation: Breast/Nipple Issue and Weight Concern (slow weight gain) Visit Code: Visit Patient's Information Phone number: [phone] : 2 Para: 2 Allergies Pertussis Vaccines Allergy (Severe, Verified 05/25/25 11:37) got pertussis from injection Mother's Medical History: Medical History (Updated 05/26/25 @ 00:01 by Background [place]) History of herpes genitalis ?Z86.19 - Personal history of other infectious and parasitic diseases (ICD-10) Primary genital herpes simplex infection ?A60.00 - Herpesviral infection of urogenital system, unspecified (ICD-10) Atypical mole ?D22.9 - Melanocytic nevi, unspecified (ICD-10) Localized swelling, mass and lump, head ?R22.0 - Localized swelling, mass and lump, head (ICD-10) Normal spontaneous vaginal delivery ?O80 - Encounter for full-term uncomplicated delivery (ICD-10) 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; [employer]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 Delivery Information Gestational Age: 37+2 Gestational Weight For Age: AGA Weight: 3.05 kg Baby's Information Baby's Age at Visit: 1 [facility] Baby's Provider or Clinic: [facility] Jaundice: Yes Past Experience Past Experience: Yes (for 13 months) Current Frequency of Day Feedings: every 3 hrs day/night, needs waking for most feedings Both Breasts: Yes Suck: seems strong Latch: a little painful Length of Time: 15 min on 1st side, 5-15 min on 2nd side Goals: at least 1 year Pumping Pumping: Yes (1-2x/day; just to relieve fullness) Supplementing EBM Supplement: No Formula Supplement: No Baby Elimination Number of Wet Diapers a Day: 7 Number of BM a Day: 7; yellow and seedy in color Breast/Nipple Condition Breast Information: Breasts are symmetrical with rounded lower quadrants, intramammary distance is less than 1.5 inches. No erythema. Nipples are supple, everted prior to feeding. Breast Shape: Round Engorgement: No Maternal Nipple Condition - Left: Common Nipple Maternal Nipple Condition - Right: Common Nipple Sore Nipples: Yes (slight) Interventions for Sore Nipples: [place]/Nipple Cream and Other (silverettes) Baby Assessment Skin: Yellow (to abdomen) Tongue/frenulum: Normal/elastic Palate: Average Lips: Relaxed and Symmetrical Jaw Alignment: Symmetrical Mucosa: [place], moist Onsite Observation Pre-Feed weight: 2.914 kg (down 6gm from yesterday; mom states large blowout before coming to clinic today) Post-Feed weight: 2.988 kg Milk Transferred (mL): 74 Position: Cross cradle Attachment/latch-on achieved: Easily Suck pattern: Suck burst and normal rest Swallow: Audible, consistent Behavior following feed: Relaxed, sleepy Pre-Nursing Left Nipple: Within Normal Limits Pre-Nursing Right Nipple: Within Normal Limits Post-Nursing Left Nipple: Creased/Beveled (slight crease noted) Post-Nursing Right Nipple: Within Normal Limits Assessments/Interventions Assessments/Interventions: Babe latched to mom's LEFT breast, latched well and stayed nursing for 12 minutes. Transferred 44 ml of milk Babe then latched to mom's RIGHT breast, latched a bit deeper and mom reported more comfortable and nursed for another 15 minutes. Transferred 30 ml of milk. Transferred 74ml of milk total Babe needed gentle support of shoulders to stay latched deeply. Education provided: Early feeding cues to maximize timing of latching, Asymmetric latch technique for wide/deep latch to increase milk, Transfer for baby and increase comfort for mom, Supply/demand nature of milk supply, Sore nipple treatment options (discourage use of nipple cream and silverettes use at the same time; ok to alternate), Alternative feeding methods (SNS, cup, finger feeding, bottling), Pumping for milk management and Other (breast compression near end of feeding to increase flow to baby) Feeding Plan: Continue with current feeding routine; offer both breasts at each feeding Continue to wake baby at least every 3 hrs until back to birthweight Follow-Up Recommend baby be seen by provider for:: WCC at 2 weeks of age Time Spent Time spent with patient (min): 60 Meds Home Medications and Allergies Home Medications ?Medication ?Instructions ?Recorded ?Confirmed ?Type docosahexaenoic acid 200 mg 200 mg PO DAILY 04/23/24 05/25/25 History capsule ( [facility]) magnesium 200 mg tablet 200 mg PO BID 03/16/25 05/25/25 History Allergies Allergy/AdvReac Type Severity Reaction Status Date / Time Pertussis Vaccines Allergy Severe got Verified 05/25/25 11:37 pertussis from injection
== END 2025-05-26 09:18 | disposition home or self-care (01) ==
LOC: OB LAC 09:17
PROVIDERS: PCP Nurse Practitioner Family; Visit Provider Obstetrics & Gynecology
DX: Z39.1 Encounter for care and examination of lactating mother (principal)
CPT/HCPCS: G0463